=== PATIENT | female | born 1930 | race Caucasian/White ===

== ENCOUNTER 2018-06-18 16:57 | Inpatient (IN) ==
--- NOTE | 2018-06-18 17:04 | Emergency Department Note ---
ED Disposition Clinical Impression: Fracture of femoral neck base Qualifiers: Encounter type: initial encounter Fracture type: closed Fracture alignment: displaced Laterality: right Qualified Code(s): S72.041A - Displaced fracture of base of neck of right femur, initial encounter for closed fracture Disposition: Admitted As Inpatient Condition on Discharge: Good Time of Disposition: 18:43 - Critical Care Critical Care Time: No Attestation: On , the high probability of a clinically significant, sudden or life threatening deterioration of the following system(s) required my full and direct attention, intervention and personal management. The time I documented below is in addition to time spent performing reported procedures but includes the following listed in this critical care notation. Medical Decision Making - Medical Records Medical records reviewed: Yes: I reviewed the patient's medical records. - Ifeanyi Inquiry Pt receiving controlled substance: No Ifeanyi was queried for this patient: No Vital Signs: 06/18/18 16:58 06/18/18 18:32 06/18/18 19:37 Temperature 98.4 F 98.6 F Temperature Source Oral Pulse Rate 65 Pulse Rate [Left Radial] 75 79 Respiratory Rate 16 16 20 Blood Pressure 114/60 Blood Pressure [Right Arm] 148/79 H 112/60 Blood Pressure Mean [Right Arm] 102 77 Blood Pressure Source [Right Arm] Automatic Cuff Automatic Cuff Blood Pressure Position [Right Arm] Sitting Sitting 02 Sat by Pulse Oximetry 98 95 Oxygen Delivery Method Room Air Room Air Room Air - Lab Data Lab results reviewed: Yes: I reviewed the patient's lab results. Lab Results 06/18/18 17:14: WBC 9.2, RBC 3.57 L, Hgb 11.0 L, Hct 34.8 L, MCV 97.5, MCH 30.7, MCHC 31.5 L, RDW 15.3, Plt Count 225, MPV 8.5, Neut % (Auto) 77.7, Lymph % (Auto) 13.0, [place] % (Auto) 6.9, Eos % (Auto) 2.2, Baso % (Auto) 0.2, Neut # (Auto) 7.2, Lymph # (Auto) 1.2, [place] # (Auto) 0.6, Eos # (Auto) 0.2, Baso # (Auto) 0.0 06/18/18 17:14: PT 13.1 H, INR 1.28 H, APTT 29.8 06/18/18 17:14: Sodium 138, Potassium 4.3, Chloride 104, Carbon Dioxide 27, Anion Gap 11.3, BUN 17, Creatinine 1.08 H, Estimated Creat Clear 45, Estimated GFR 48 L, Est GFR ( Amer) 58 L, Glucose 97, Calcium 8.1 L, Total Bilirubin 2.0 H, AST 18, ALT 18, Alkaline Phosphatase 78, Total Protein 5.8 L, Albumin 2.5 L, Globulin 3.3 H, Albumin/Globulin Ratio 0.8 L Result diagrams: 06/19/18 06:16 06/19/18 06:16 Orders (Tests/Meds): ED MEDICATIONS Generic Name Dose Route Start Last Admin Trade Name Freq PRN Reason Stop Dose Admin Acetaminophen 500 mg 06/19/18 09:00 06/19/18 09:34 Tylenol 500mg Tablet PO 07/19/18 08:59 500 mg DAILY CHRISS Administration Hydrocodone Bitart/Acetaminophen 1 - 2 tab 06/18/18 19:26 [place] 5/325mg Tablet PO 07/18/18 19:25 Q4HP PRN Mild to Moderate Pain Atorvastatin Calcium 40 mg 06/19/18 21:00 Lipitor 40mg Tablet PO 07/19/18 20:59 HS CHRISS Bupropion HCl 150 mg 06/19/18 09:00 06/19/18 09:30 Wellbutrin Sr 150mg Tablet PO 07/19/18 08:59 150 mg BID CHRISS Administration Citalopram Hydrobromide 20 mg 06/19/18 09:00 06/19/18 09:30 Celexa 20mg Tablet PO 07/19/18 08:59 20 mg DAILY CHRISS Administration Donepezil HCl 10 mg 06/18/18 21:00 06/18/18 22:08 Aricept 10mg Tablet PO 07/18/18 20:59 Not Given HS CHRISS Sodium Chloride 1,000 mls @ 70 mls/hr 06/19/18 18:15 06/19/18 18:19 Sod Chlor 0.9% 1000ml Bag IV 07/19/18 18:14 70 mls/hr .[id number] CHRISS Administration Insulin Human Lispro 0 unit 06/19/18 11:00 06/19/18 16:43 Humalog 100 Units/Ml 3ml Vial (Ssi) SQ 07/19/18 10:59 Not Given ACHS [facility] Protocol Lamotrigine 25 mg 06/19/18 09:00 06/19/18 09:31 Lamictal 100mg Tablet PO 07/19/18 08:59 25 mg BID CHRISS Administration Metoprolol Succinate 50 mg 06/19/18 09:00 06/19/18 09:30 Toprol Xl 50mg Tablet PO 07/19/18 08:59 Not Given DAILY CHRISS Morphine Sulfate 2 mg 06/18/18 19:26 06/19/18 17:54 Morphine 4mg/Ml Syringe IV 07/18/18 19:25 2 mg Q4HP PRN Administration Severe Pain Nitrofurantoin Macrocrystals 100 mg 06/19/18 09:00 06/19/18 09:30 Macrodantin 100mg Capsule PO 07/03/18 08:59 100 mg DAILY CHRISS Administration Ondansetron HCl 4 mg 06/18/18 19:26 Zofran 4mg/2ml Vial IV 07/18/18 19:25 Q8HP PRN Nausea Pantoprazole Sodium 40 mg 06/19/18 09:00 06/19/18 09:30 Protonix 40mg Tablet PO 07/19/18 08:59 40 mg DAILY CHRISS Administration Discontinued Medications Generic Name Dose Route Start Last Admin Trade Name Freq PRN Reason Stop Dose Admin Donepezil HCl 10 mg 06/19/18 21:00 Aricept 10mg Tablet PO 07/19/18 20:59 HS [facility] Morphine Sulfate 2 mg 06/18/18 17:54 06/18/18 18:00 Morphine 2mg/Ml Syringe IV 06/18/18 17:55 2 mg ONCE ONE Administration Morphine Sulfate 2 mg 06/18/18 18:21 06/18/18 18:33 Morphine 2mg/Ml Syringe IV 06/18/18 18:22 2 mg ONCE ONE Administration Non-Formulary Medication 20 mg 06/18/18 21:00 06/18/18 22:09 Escitalopram Oxalate [Escitalopram Oxalate] PO 07/18/18 20:59 Not Given HS CHRISS Non-Formulary Medication 25 mg 06/18/18 21:00 06/18/18 22:09 Lamotrigine [Lamictal] PO 07/18/18 20:59 Not Given BID CHRISS Non-Formulary Medication 10 mg 06/19/18 09:00 Escitalopram Oxalate [Lexapro] PO 07/19/18 08:59 DAILY CHRISS Ondansetron HCl 4 mg 06/18/18 17:55 06/18/18 18:00 Zofran 4mg/2ml Vial IV 06/18/18 17:56 4 mg ONCE ONE Administration Trazodone HCl 50 mg 06/18/18 21:00 06/18/18 22:10 Desyrel 50mg Tablet PO 07/18/18 20:59 Not Given HS CHRISS ORDERS Category Date Time Status Consult to On-Call Orthopedic Surgeon [CONS] Routine Cons 06/18/18 19:26 Ordered - CT Data CT Scan: Abdomen, Pelvis Time Received: 18:[address] Reviewed: Yes: I discussed the CT results w/the radiologist Findings Narrative: low femoral neck fracture extending through greater trochanter - Physician Consults Physician Consulted: Yadiel Time: 18:42 Reason -: Orthopedic Eval/Care Fall HPI - General Chief Complaint: Fall Stated Complaint: fall Time Seen by Provider: 06/18/18 17:00 Mode of Arrival: EMS Source of Information: Relative - History of Present Illness HPI Narrative: alleged fall at [facility], last date of 06/17/2018. R hip pain, severe with any movement.. On chronic anticoagulation MD complaint: fall Onset (ago): day(s) Place fall occurred: [facility] Loss of consciousness: none Prolonged down time: no Location of injury: pelvis - Related Data Home Medications Medication Instructions Recorded Confirmed Acetaminophen [Tylenol 500mg 500 mg PO BID 06/18/18 06/19/18 tablet] Atorvastatin Calcium [Lipitor 40mg 40 mg PO HS 06/18/18 06/19/18 Tablet] Donepezil HCl [Aricept 5mg 10 mg PO HS 06/18/18 06/18/18 Tablet] Metoprolol Succinate [Toprol XL 50 mg PO DAILY 06/18/18 06/18/18 50mg Tablet] Nitrofurantoin Monohyd/M-Cryst 100 mg PO BID 06/18/18 06/19/18 [Macrobid 100 mg Capsule] RX: Trospium Chloride 20 mg PO HS 06/18/18 06/19/18 Rivaroxaban [Xarelto 15mg tablet] 15 mg PO HS 06/18/18 06/18/18 buPROPion HCl [Wellbutrin SR 150mg 150 mg PO BID 06/18/18 06/19/18 Tablet] lamoTRIgine [Lamictal] 25 mg PO BID 06/18/18 06/18/18 Escitalopram Oxalate [Lexapro] 10 mg PO DAILY 06/19/18 06/19/18 Allergies Allergy/AdvReac Type Severity Reaction Status Date / Time dobutamine Allergy Verified 06/18/18 17:04 Iodinated Contrast Media - Allergy Verified 06/18/18 17:04 Oral and iodine Allergy Verified 06/18/18 17:04 [facility] History - Hepatitis A Screen Attestation statement:: This patient has been screened for Hepatitis A risk factors. I have reviewed the patient's past medical history: Yes ROS Obtained: Yes All systems reviewed & no additional complaints - Constitutional Constitutional: Reports system reviewed and no additional complaints, except as docu, Denies fever(s), Denies lethargy, Denies weakness - Eyes Eyes: Reports system reviewed and no additional complaints, except as docu, Denies change in vision - ENT Ears, Nose, Mouth, and Throat: Reports system reviewed and no additional c omplaints, except as docu, Denies throat swelling - Cardiovascular Cardiovascular: Reports system reviewed and no additional complaints, except as docu, Denies chest pain, Denies chest pain at rest, Denies chest pain with activity, Denies dyspnea, Denies dyspnea on exertion - Respiratory Respiratory: Yes system reviewed and no additional complaints, except as docu, No chest congestion, No cough, Yes other - Gastrointestinal Gastrointestingal: Reports: system reviewed and no additional complaints, except as docu. Denies: abdominal pain, diarrhea, vomiting blood, bright red blood in stools, nausea - Genitourinary Female Genitourinary: Denies flank pain - Musculoskeletal Musculoskeletal: Reports system reviewed and no additional complaints, except as docu, Reports joint pain, Reports decreased muscle mass, Reports limited range of motion, Reports muscle aches, Denies neck pain, Denies numbness - Integumentary/Breasts Skin/Breast: Reports system reviewed and no additional complaints, except as docu, Denies skin swelling, Denies unusual bruising - Neurologic Neurologic: Reports system reviewed and no additional complaints, except as docu, Denies tingling/numbness/burning sensations, Denies seizure-like activity, Denies tremor(s) - Hematologic/Lymphatic Henatologic/Lymphatic: Denies easy bleeding, Denies easy bruising, Denies lymphadenopathy - Allergic/Immunologic Allergic/Immunologic: Reports system reviewed and no additional complaints, except as docu Physical Exam - General General appearance: alert, in distress - Head Head exam: atraumatic, normocephalic, normal inspection - Eye Eye exam: Present: normal appearance, PERRL, EOMI - ENT ENT exam: Present: normal exam, normal oropharynx, mucous membranes moist, TM's normal bilaterally, normal external ear exam - Neck Neck exam: Present: normal inspection, full ROM, trachea midline. Absent: meningismus, lymphadenopathy - Chest Chest inspection: Present: normal inspection, symmetric chest wall rise. Absent: tenderness - Respiratory Respiratory exam: Present: normal lung sounds bilaterally. Absent: respiratory distress - Cardiovascular Cardiovascular exam: Present: regular rate, normal rhythm. Absent: JVD - Abdominal Exam Abdominal exam: Present: soft. Absent: distention, tenderness, guarding, rebound, rigidity, mass, pulsatile mass - Extremities Exam Extremities exam: Present: tenderness, normal capillary refill, other (leg length discrepency noted, R shortened). Absent: normal inspection, full ROM, pedal edema, joint swelling, calf tenderness (tender R hip area. No hematoma seen) - Neurological Exam Neurological exam: Present: alert, oriented X3, CN II-XII intact - Psychiatric Psychiatric exam: Present: normal affect, normal mood - Skin Skin exam: Present: warm, dry, intact, normal color
[2018-06-18 17:22] LABS: Basophils % 0.2 % (0.1-2.0); Eosinophils # 0.2 K/mm3 (0.0-0.4); Eosinophils % 2.2 % (0.1-12.0); Hematocrit 34.8 % (37.0-47.0); Lymphocytes # 1.2 K/mm3 (0.7-4.5); Mean Corpuscular HGB Conc 31.5 g/dL (31.8-35.4); Mean Corpuscular Hemoglobin 30.7 pg (27.0-31.2); Mean Corpuscular Volume 97.5 fl (81-99); Mean Platelet Volume 8.5 fl (7.4-10.4); Monocytes # 0.6 K/mm3 (0.1-1.0); Monocytes % 6.9 % (1.7-9.3); Neutrophils # 7.2 K/mm3 (1.8-7.8); Neutrophils % 77.7 % (37.0-80.0); Platelet Count 225 K/mm3 (142-424); Red Blood Count 3.57 M/mm3 (4.20-5.40); Red Cell Distribution Width 15.3 % (11.5-17.5); White Blood Count 9.2 K/mm3 (4.8-10.8)
[2018-06-18 17:31] LABS: Activated Partial Thrombo Time 29.8 seconds (23.6-34.0); INR 1.28 (0.9-1.1); Prothrombin Time 13.1 seconds (9.4-11.8)
[2018-06-18 17:37] LABS: Albumin Level 2.5 gm/dL (3.4-5.0); Albumin/Globulin Ratio 0.8 (1.1-1.8); Anion Gap 11.3 mEq/L (5-15); Calcium 8.1 mg/dL (8.5-10.1); Globulin 3.3 gm/dl (1.3-3.2); Potassium 4.3 mmoL/L (3.5-5.1); Total Protein,Serum 5.8 gm/dL (6.4-8.2)
--- NOTE | 2018-06-19 06:34 | History & Physical Report ---
*Admission Date: 06/18/18 *Chief complaint: fall, fractured hip *History of present illness: Ms. Nava is an 87 yo F who resides at a [facility]. [facility] the [facility] on [facility]. She subsequently has been c/o severe right hip pain with any movement. Imaging shows a femoral neck fracture through the greater trochanter. Her condition is complicated by her chronic anticoagulation use. Unable to obtain much history due to patient's dementia and no patient advocate or family at bedside. At this time she reports that she has some leg pain but she does not think her leg is broken as she was walking. She also thinks she is in [place], and asks if her mom is with her. Unable to obtain review of systems [facility] History I have reviewed the patient's past medical history: Yes Medical History: Reports:: Atrial Fibrillation, Diabetes Mellitus Type 2 (NOT AN ISSUE AT THIS PRESENT TIME) Have you ever received a pneumonia vaccine?: Yes Have you received a flu vaccine this season?: No Other Surgeries: Yes: Cholecystectomy, Other (GASTRIC REMOVAL) - *Social History Educational Level: Attended College Smoking Status: Never smoker Alcohol Intake: never Occupational Status: retired Housing: [facility] Travel in the last 8 weeks: None - Psychiatric History Expresses thoughts of harming self/others: None Suicide Plan Description: No Plan *Family Hx:: Coronary Artery Disease, Diabetes, Heart Attack, Hyperlipidemia, Hypertension Review of Systems - Review of Systems Review of systems:: unable to obtain - *Neurologic Denies numbness, Denies tingling/numbness/burning sensations, Denies seizure-li ke activity, Denies tremor(s), Denies weakness Meds Home Medications Medication Instructions Recorded Confirmed Type Acetaminophen [Tylenol 500mg 500 mg PO BID 06/18/18 06/19/18 History tablet] Atorvastatin Calcium [Lipitor 40mg 40 mg PO HS 06/18/18 06/19/18 History Tablet] Donepezil HCl [Aricept 5mg 10 mg PO HS 06/18/18 06/18/18 History Tablet] Metoprolol Succinate [Toprol XL 50 mg PO DAILY 06/18/18 06/18/18 History 50mg Tablet] Nitrofurantoin Monohyd/M-Cryst 100 mg PO BID 06/18/18 06/19/18 History [Macrobid 100 mg Capsule] Rivaroxaban [Xarelto 15mg tablet] 15 mg PO HS 06/18/18 06/18/18 History Trospium Chloride 20 mg PO HS 06/18/18 06/19/18 History buPROPion HCl [Wellbutrin SR 150mg 150 mg PO BID 06/18/18 06/19/18 History Tablet] lamoTRIgine [Lamictal] 25 mg PO BID 06/18/18 06/18/18 History Escitalopram Oxalate [Lexapro] 10 mg PO DAILY 06/19/18 06/19/18 History Allergies Allergy/AdvReac Type Severity Reaction Status Date / Time dobutamine Allergy Verified 06/18/18 17:04 Iodinated Contrast Media - Allergy Verified 06/18/18 17:04 Oral and iodine Allergy Verified 06/18/18 17:04 Exam Vital signs and Labs for Last 24 Hours: Temp Pulse Resp BP Pulse Ox 97.8 F 94 H 20 105/64 L 93 L 06/19/18 04:00 06/19/18 04:00 06/19/18 04:00 06/19/18 04:00 06/19/18 04:00 Laboratory Results - last 24 hr 06/18/18 17:14: WBC 9.2, RBC 3.57 L, Hgb 11.0 L, Hct 34.8 L, MCV 97.5, MCH 30.7, MCHC 31.5 L, RDW 15.3, Plt Count 225, MPV 8.5, Neut % (Auto) 77.7, Lymph % (Auto) 13.0, [place] % (Auto) 6.9, Eos % (Auto) 2.2, Baso % (Auto) 0.2, Neut # (Auto) 7.2, Lymph # (Auto) 1.2, [place] # (Auto) 0.6, Eos # (Auto) 0.2, Baso # (Auto) 0.0 06/18/18 17:14: PT 13.1 H, INR 1.28 H, APTT 29.8 06/18/18 17:14: Sodium 138, Potassium 4.3, Chloride 104, Carbon Dioxide 27, Anion Gap 11.3, BUN 17, Creatinine 1.08 H, Estimated Creat Clear 45, Estimated GFR 48 L, Est GFR ( Amer) 58 L, Glucose 97, Calcium 8.1 L, Total Bilirubin 2.0 H, AST 18, ALT 18, Alkaline Phosphatase 78, Total Protein 5.8 L, Albumin 2.5 L, Globulin 3.3 H, Albumin/Globulin Ratio 0.8 L I & O for Last 24 hours: Intake & Output 06/16/18 06/17/18 06/18/18 06/19/18 23:59 23:59 23:59 23:59 Weight 65.572 kg - Constitutional no acute distress, chronically ill appearing Comments: Pleasantly confused - *Routine HEENT Exam Head: Present: normocephalic, atraumatic Eye: Present: EOMI, PERRL ENT: Present: mucous membranes moist Comments: Poor dentition - *Routine Neck Exam Present: supple, full ROM. Absent: JVD - Routine Chest/Breast/Axilla Exam Comments: Prominent ribs across chest - *Routine Respiratory Exam Present: CTA bilaterally. Absent: wheezes, crackles - *Routine Cardiovascular Exam Present: RRR - *Routine Abdominal Exam Present: soft, normoactive bowel sounds - *Routine Rectal Exam Patient deferred: visual exam - *Routine Exam Patient deferred: external exam Comments: Incontinent, in diaper - *Routine Extremities Exam Present: edema. Absent: cyanosis, clubbing Comments: Tender to palpation in right upper thigh - *Routine Skin Exam Present: intact. Absent: cyanosis, erythema - *Routine Neurological Exam Present: alert, altered mental status Alert to person, disoriented to place, time, situation. Assessment and Plan (1) Fracture of femoral neck base Current visit: Yes Status: Acute Qualifiers: Qualified Code(s): S72.041A - Displaced fracture of base of neck of right femur, initial encounter for closed fracture Category: Medical Code(s): S72.043A - Displaced fracture of base of neck of unspecified femur, initial encounter for closed fracture RCRI: Patient has atrial fibrillation rate controlled with metoprolol, chronic anticoagulation. Normal kidney function. [id number] diabetes. History of coronary artery disease, CVD unknown. Does have significant dementia. Patient would be an elevated risk patient for an intermediate risk procedure. Will obtain EKG and echo to assist with risk stratification for anesthesia. Surgery would be emergent given increased mortality in the non-op setting for femoral neck fracture of a patient of this age. Continue beta-haylee in the perioperative setting Hold anticoagulation Sliding scale insulin for hyperglycemia as needed EKG/echo pending Cardiology consulted METs: Unquantifiable, though reportedly ambulatory at baseline. (2) Dementia Current visit: Yes Status: Acute Category: Medical Code(s): F03.90 - Unspecified dementia without behavioral disturbance At baseline, unknown etiology. Continue medications from home. (3) Atrial fibrillation Current visit: Yes Status: Acute Category: Medical Code(s): I48.91 - Uns pecified atrial fibrillation Continue beta-haylee and perioperative period. Holding Xarelto. -EKG pending (4) Diabetes type 2, controlled Current visit: Yes Status: Acute Qualifiers: Qualified Code(s): E11.9 - Type 2 diabetes mellitus without complications Category: Medical Code(s): E11.9 - Type 2 diabetes mellitus without complications Sliding scale insulin, fingersticks before meals and at bedtime
[2018-06-19 06:54] LABS: Basophils # 0.1 K/mm3 (0-0.2); Basophils % 0.6 % (0.1-2.0); Eosinophils # 0.3 K/mm3 (0.0-0.4); Eosinophils % 4.2 % (0.1-12.0); Hematocrit 33.2 % (37.0-47.0); Hemoglobin 10.4 g/dL (12.2-16.2); Lymphocytes # 1.5 K/mm3 (0.7-4.5); Lymphocytes % 19.5 % (10-50); Mean Corpuscular HGB Conc 31.3 g/dL (31.8-35.4); Mean Corpuscular Volume 99.1 fl (81-99); Mean Platelet Volume 9.1 fl (7.4-10.4); Monocytes # 0.5 K/mm3 (0.1-1.0); Monocytes % 6.9 % (1.7-9.3); Neutrophils # 5.2 K/mm3 (1.8-7.8); Neutrophils % 68.9 % (37.0-80.0); Platelet Count 184 K/mm3 (142-424); Red Blood Count 3.35 M/mm3 (4.20-5.40); Red Cell Distribution Width 15.4 % (11.5-17.5); White Blood Count 7.5 K/mm3 (4.8-10.8)
[2018-06-19 07:00] LABS: Calcium 7.9 mg/dL (8.5-10.1)
--- NOTE | 2018-06-19 07:28 | Pharmacy Consult Notes ---
[facility] Pharmacy VTE Monitoring - Patient Demographics Admission date: 06/18/18 Report Date: 06/19/18 Time: 07:28 Allergies/Adverse Reactions: Patient Allergies dobutamine Allergy (Verified 06/18/18 17:04) Iodinated Contrast Media - Oral and Allergy (Verified 06/18/18 17:04) iodine Allergy (Verified 06/18/18 17:04) Height: 1.57 m Weight: 65.572 kg Patient Problems: Current Active Problems Fracture of femoral neck base (Acute) - VTE Risk Labs: VTE Related Lab Results Hgb 10.4 g/dL (12.2-16.2) L 06/19/18 06:16 Hct 33.2 % (37.0-47.0) L 06/19/18 06:16 Plt Count 184 K/mm3 (142-424) 06/19/18 06:16 PT 13.1 seconds (9.4-11.8) H 06/18/18 17:14 INR 1.28 (0.9-1.1) H 06/18/18 17:14 APTT 29.8 seconds (23.6-34.0) 06/18/18 17:14 BUN 17 mg/dL (7-18) 06/19/18 06:16 Creatinine 1.05 mg/dL (0.55-1.02) H 06/19/18 06:16 Estimated Creat Clear 41 mL/min (50-200) 06/19/18 06:16 Was VTE Risk Assessment Performed: Yes VTE Score: 6 VTE Risk Level: Moderate Risk - Prophylaxis VTE Prophylaxis Ordered?: Yes Types of VTE Prophylaxis: TEDS Knee High Location of Applied Device: Bilateral Lower Extremeties - VTE Diagnosis Confirmed Treatment or plan recommended: Continue Current Treatment
--- NOTE | 2018-06-19 08:44 | Consult Report ---
History of Present Illness Consult date: 06/19/18 Requesting physician: Damian Rascon Consult reason: pre-op evaluation Chief complaint: Right hip Fx, A. fib, DM, Dementia Additional Medical History:: 1. [facility] resident 2. Dementia 3. History of A. fib A. jail anticoagulation 4. Right hip Fx, 06/18/2017 5. Hyperlipidemia 6. DM, type 2, with normal renal function History of present illness: 87 yo WF from [facility] with reported fall with subsequent right hip fracture. Dementia precludes meaningful history from patient. No family present. Cardiology consulted for pre-op evaluation with PMH of a.fib on chronic anticoagulation with rate controlled on metoprolol and history of DM. [facility] History Medical History: Reports:: Atrial Fibrillation, Diabetes Mellitus Type 2 (NOT AN ISSUE AT THIS PRESENT TIME) Have you ever received a pneumonia vaccine?: Yes Have you received a flu vaccine this season?: No Other Surgeries: Yes: Cholecystectomy, Other (GASTRIC REMOVAL) - *Social History Educational Level: Attended College Smoking Status: Never smoker Alcohol Intake: never Occupational Status: retired Housing: [facility] Travel in the last 8 weeks: None - Psychiatric History Expresses thoughts of harming self/others: None Suicide Plan Description: No Plan *Family Hx:: Coronary Artery Disease, Diabetes, Heart Attack, Hyperlipidemia, Hypertension Meds Home Medications Medication Instructions Recorded Confirmed Type Acetaminophen [Tylenol 500mg 500 mg PO BID 06/18/18 06/19/18 History tablet] Atorvastatin Calcium [Lipitor 40mg 40 mg PO HS 06/18/18 06/19/18 History Tablet] Donepezil HCl [Aricept 5mg 10 mg PO HS 06/18/18 06/18/18 History Tablet] Metoprolol Succinate [Toprol XL 50 mg PO DAILY 06/18/18 06/18/18 History 50mg Tablet] Nitrofurantoin Monohyd/M-Cryst 100 mg PO BID 06/18/18 06/19/18 History [Macrobid 100 mg Capsule] Rivaroxaban [Xarelto 15mg tablet] 15 mg PO HS 06/18/18 06/18/18 History Trospium Chloride 20 mg PO HS 06/18/18 06/19/18 History buPROPion HCl [Wellbutrin SR 150mg 150 mg PO BID 06/18/18 06/19/18 History Tablet] lamoTRIgine [Lamictal] 25 mg PO BID 06/18/18 06/18/18 History Escitalopram Oxalate [Lexapro] 10 mg PO DAILY 06/19/18 06/19/18 History Allergies Allergy/AdvReac Type Severity Reaction Status Date / Time dobutamine Allergy Verified 06/18/18 17:04 Iodinated Contrast Media - Allergy Verified 06/18/18 17:04 Oral and iodine Allergy Verified 06/18/18 17:04 Review of Systems - *Cardiovascular Denies chest pain, Denies shortness of breath - *Respiratory Denies cough, Denies shortness of breath - *Gastrointestinal Denies abdominal pain - *Musculoskeletal Reports joint pain - *Neurologic Denies numbness, Denies tingling/numbness/burning sensations, Denies seizure- like activity, Denies tremor(s), Denies weakness Exam Vital signs and Labs for Last 24 Hours: Temp Pulse Resp BP Pulse Ox 98.9 F 92 H 18 96/62 L 91 L 06/19/18 08:00 06/19/18 08:00 06/19/18 08:00 06/19/18 08:00 06/19/18 08:00 Laboratory Results - last 24 hr 06/18/18 17:14: WBC 9.2, RBC 3.57 L, Hgb 11.0 L, Hct 34.8 L, MCV 97.5, MCH 30.7, MCHC 31.5 L, RDW 15.3, Plt Count 225, MPV 8.5, Neut % (Auto) 77.7, Lymph % ( Auto) 13.0, [place] % (Auto) 6.9, Eos % (Auto) 2.2, Baso % (Auto) 0.2, Neut # (Auto) 7.2, Lymph # (Auto) 1.2, [place] # (Auto) 0.6, Eos # (Auto) 0.2, Baso # (Auto) 0.0 06/18/18 17:14: PT 13.1 H, INR 1.28 H, APTT 29.8 06/18/18 17:14: Sodium 138, Potassium 4.3, Chloride 104, Carbon Dioxide 27, Anion Gap 11.3, BUN 17, Creatinine 1.08 H, Estimated Creat Clear 45, Estimated GFR 48 L, Est GFR ( Amer) 58 L, Glucose 97, Calcium 8.1 L, Total Bilirubin 2.0 H, AST 18, ALT 18, Alkaline Phosphatase 78, Total Protein 5.8 L, Albumin 2.5 L, Globulin 3.3 H, Albumin/Globulin Ratio 0.8 L 06/19/18 06:16: WBC 7.5, RBC 3.35 L, Hgb 10.4 L, Hct 33.2 L, MCV 99.1 H, MCH 31.0, MCHC 31.3 L, RDW 15.4, Plt Count 184, MPV 9.1, Neut % (Auto) 68.9, Lymph % (Auto) 19.5, [place] % (Auto) 6.9, Eos % (Auto) 4.2, Baso % (Auto) 0.6, Neut # (Auto) 5.2, Lymph # (Auto) 1.5, [place] # (Auto) 0.5, Eos # (Auto) 0.3, Baso # (Auto) 0.1 06/19/18 06:16: Sodium 141, Potassium 4.0, Chloride 106, Carbon Dioxide 26, Anion Gap 13.0, BUN 17, Creatinine 1.05 H, Estimated Creat Clear 41, Estimated GFR 50 L, Est GFR ( Amer) 60, Glucose 76 D, Calcium 7.9 L I & O for Last 24 hours: Intake & Output 06/16/18 06/17/18 06/18/18 06/19/18 11:59 11:59 11:59 11:59 Intake Total 0 / 0 Balance 0 / 0 Weight 144 lb 9 oz - *Routine Neck Exam Present: supple. Absent: JVD, carotid bruit - *Routine Respiratory Exam Present: CTA bilaterally. Absent: accessory muscle use, rales, rhonchi, wheezes - *Routine Cardiovascular Exam Present: RRR. Absent: murmur, gallop, rubs - *Routine Abdominal Exam Present: soft. Absent: tenderness, distended, guarding - *Routine Extremities Exam Absent: edema, calf tenderness - *Routine Neurological Exam Present: CN II-XII intact Thinks she is in [place] Does not answer question of year Drifts off when asked other questions. Assessment and Plan (1) Fracture of femoral neck base Current visit: Yes Status: Acute Qualifiers: Encounter type: initial encounter Fracture type: closed Fracture alignment: displaced Laterality: right Qualified Code(s): S72.041A - Displaced fracture of base of neck of right femur, initial encounter for closed fracture Category: Medical Code(s): S72.043A - Displaced fracture of base of neck of unspecified femur, initial encounter for closed fracture (2) Dementia Current visit: Yes Status: Acute Category: Medical Code(s): F03.90 - Unspecified dementia without behavioral disturbance (3) Atrial fibrillation Current visit: Yes Status: Acute Category: Medical Code(s): I48.91 - Unspecified atrial fibrillation (4) Diabetes type 2, controlled Current visit: Yes Status: Acute 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 EKG shows NSR with borderline first degree AV block. 2. Xarelto has been held. 3. Pt is comfortable lieing flat without dyspnea or JVD appreciable on exam. 4. Echo shows normal LV function with mild to moderate mitral regurgitation. Left atrial enlargement noted. 5. Pt is increased but acceptable risk for right hip surgery and general anesthesia from a cardiology standpoint. Recommend waiting until Tuesday to operate due to last dose of Xarelto on 06/18/2018. Continue home dose of metoprolol valery-operatively. Continue telemetry to monitor for atrial fibrillation. 6. Discussed with Dr. Craig
--- NOTE | 2018-06-19 15:20 | Consult Report ---
*Admission Date: 06/18/18 *Chief complaint: Fracture neck of femur, right *History of present illness: Ms. Nava is an 87 yo female who is a resident of a long-term. Patient has severe dementia which precludes any meaningful conversation with the patient. No family members are present with her at this time. As per the admission documentation, she reportedly fell at the long-term on 06/17. She subsequently has been c/o severe right hip pain with any movement. She was brought to the ER where imaging showed a femoral neck fracture through the greater trochanter. She is on long-term anti-correlation with Xarelto for atrial fibrillation. Her last dose was yesterday. Unable to obtain much history due to patient's dementia and no patient advocate or family at bedside. We have contacted the long-term and the sick patient has been with them for only about a week or so. She apparently has very poor mobility and transfers with help; she also mobilizes a short distances with a walker and 1 person assistance. 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 Orthopedic surgery consulted for management of the right hip fracture Review of Systems - Review of Systems Review of systems:: unable to obtain [facility] History I have reviewed the patient's past medical history: Yes Medical History: Reports:: Atrial Fibrillation, Diabetes Mellitus Type 2 (NOT AN ISSUE AT THIS PRESENT TIME) Have you ever received a pneumonia vaccine?: Yes Have you received a flu vaccine this season?: No Other Surgeries: Yes: Cholecystectomy, Other (GASTRIC REMOVAL) - *Social History Educational Level: Attended College Smoking Status: Never smoker Alcohol Intake: never Occupational Status: retired Housing: long-term Travel in the last 8 weeks: None - Psychiatric History Expresses thoughts of harming self/others: None Suicide Plan Description: No Plan *Family Hx:: Coronary Artery Disease, Diabetes, Heart Attack, Hyperlipidemia, Hypertension Meds Home Medications Medication Instructions Recorded Confirmed Type Acetaminophen [Tylenol 500mg 500 mg PO BID 06/18/18 06/19/18 History tablet] Atorvastatin Calcium [Lipitor 40mg 40 mg PO HS 06/18/18 06/19/18 History Tablet] Donepezil HCl [Aricept 5mg 10 mg PO HS 06/18/18 06/18/18 History Tablet] Metoprolol Succinate [Toprol XL 50 mg PO DAILY 06/18/18 06/18/18 History 50mg Tablet] Nitrofurantoin Monohyd/M-Cryst 100 mg PO BID 06/18/18 06/19/18 History [Macrobid 100 mg Capsule] Rivaroxaban [Xarelto 15mg tablet] 15 mg PO HS 06/18/18 06/18/18 History Trospium Chloride 20 mg PO HS 06/18/18 06/19/18 History buPROPion HCl [Wellbutrin SR 150mg 150 mg PO BID 06/18/18 06/19/18 History Tablet] lamoTRIgine [Lamictal] 25 mg PO BID 06/18/18 06/18/18 History Escitalopram Oxalate [Lexapro] 10 mg PO DAILY 06/19/18 06/19/18 History Allergies Allergy/AdvReac Type Severity Reaction Status Date / Time dobutamine Allergy Verified 06/18/18 17:04 Iodinated Contrast Media - Allergy Verified 06/18/18 17:04 Oral and iodine Allergy Verified 06/18/18 17:04 Exam Vital signs and Labs for Last 24 Hours: Temp Pulse Resp BP Pulse Ox 98.9 F 92 H 18 96/62 L 91 L 06/19/18 08:00 06/19/18 08:00 06/19/18 08:00 06/19/18 08:00 06/19/18 08:00 Laboratory Results - last 24 hr 06/18/18 17:14: WBC 9.2, RBC 3.57 L, Hgb 11.0 L, Hct 34.8 L, MCV 97.5, MCH 30.7, MCHC 31.5 L, RDW 15.3, Plt Count 225, MPV 8.5, Neut % (Auto) 77.7, Lymph % (Auto) 13.0, [place] % (Auto) 6.9, Eos % (Auto) 2.2, Baso % (Auto) 0.2, Neut # (Auto) 7.2, Lymph # (Auto) 1.2, [place] # (Auto) 0.6, Eos # (Auto) 0.2, Baso # (Auto) 0.0 06/18/18 17:14: PT 13.1 H, INR 1.28 H, APTT 29.8 06/18/18 17:14: Sodium 138, Potassium 4.3, Chloride 104, Carbon Dioxide 27, Anion Gap 11.3, BUN 17, Creatinine 1.08 H, Estimated Creat Clear 45, Estimated GFR 48 L, Est GFR ( Amer) 58 L, Glucose 97, Calcium 8.1 L, Total Bilirubin 2.0 H, AST 18, ALT 18, Alkaline Phosphatase 78, Total Protein 5.8 L, Albumin 2.5 L, Globulin 3.3 H, Albumin/Globulin Ratio 0.8 L 06/19/18 06:16: WBC 7.5, RBC 3.35 L, Hgb 10.4 L, Hct 33.2 L, MCV 99.1 H, MCH 31.0, MCHC 31.3 L, RDW 15.4, Plt Count 184, MPV 9.1, Neut % (Auto) 68.9, Lymph % (Auto) 19.5, [place] % (Auto) 6.9, Eos % (Auto) 4.2, Baso % (Auto) 0.6, Neut # (Auto) 5.2, Lymph # (Auto) 1.5, [place] # (Auto) 0.5, Eos # (Auto) 0.3, Baso # (Auto) 0.1 06/19/18 06:16: Sodium 141, Potassium 4.0, Chloride 106, Carbon Dioxide 26, Anion Gap 13.0, BUN 17, Creatinine 1.05 H, Estimated Creat Clear 41, Estimated GFR 50 L, Est GFR ( Amer) 60, Glucose 76 D, Calcium 7.9 L 06/19/18 11:32: POC Glucose 74 I & O for Last 24 hours: Intake & Output 06/17/18 06/18/18 06/19/18 06/20/18 11:59 11:59 11:59 11:59 Intake Total 0 / 0 Balance 0 / 0 Weight 144 lb 9 oz 144 lb 8.984 oz - Constitutional no acute distress, average body habitus - *Routine HEENT Exam Head: Present: normocephalic, atraumatic ENT: Present: mucous membranes dry - *Routine Neck Exam Present: supple, trachea midline. Absent: lymphadenopathy - *Routine Respiratory Exam Present: CTA bilaterally. Absent: respiratory distress - *Routine Cardiovascular Exam Present: RRR, Normal S1, Normal S2 - *Routine Abdominal Exam Present: soft, normoactive bowel sounds. Absent: organomegaly - *Routine Extremities Exam Comments: On examination of her lower extremities, there is shortening of the RIGHT leg and the foot is externally rotated. On examination of the RIGHT hip the skin is normal. No rashes or lesions noted. She is tender over the RIGHT hip. Any attempted movements of the RIGHT hip are painful. Thigh and calf are soft and nontender. Dorsalis pedis and posterior tibial pulses are palpable 1+ bilaterally. Sensation is grossly intact. She is actively wiggling the foot and ankle. Diagnostic imaging: X-rays of her right hip and right femur multiple views and noncontrast CT scan images of the right hip (from the abdomen/pelvis CT) are reviewed along with the radiologist's report. I have personally discussed the x-ray and CT scan findings with the radiologist, Dr. Powell. The x-rays show a complex, displaced, comminuted peritrochanteric fracture with basicervical extension. The lesser trochanter appears intact even though there is suspicion of a fracture line on the anterior cuts of the CT scan. No femoral head fracture or dislocation noted. The femoral head and acetabulum are well preserved without significant degenerative changes. There is a moderate/severe degree of osteopenia; vascular calcification noted over the hip. Full length femur x-ray shows no distal fractures, deformities or lesions. The right knee joint is arthritic. I have also reviewed her images with my colleague, Dr. Dahl. - *Routine Skin Exam Present: intact, dry, warm - *Routine Neurological Exam Present: alert - Routine Psychiatric Exam Present: cooperative Results - Labs Result Diagrams: 06/19/18 06:16 06/21/18 07:25 Labs: Abnormal lab results 06/18/18 06/18/18 06/18/18 Range/Units 17:14 17:14 17:14 RBC 3.57 L (4.20-5.40) M/mm3 Hgb 11.0 L (12.2-16.2) g/dL Hct 34.8 L (37.0-47.0) % MCV (81-99) fl MCHC 31.5 L (31.8-35.4) g/dL PT 13.1 H (9.4-11.8) seconds INR 1.28 H (0.9-1.1) Creatinine 1.08 H (0.55-1.02) mg/dL Estimated GFR 48 L (>60) ml/min Est GFR ( Amer) 58 L (>60) ML/MIN Calcium 8.1 L (8.5-10.1) mg/dL Total Bilirubin 2.0 H (0.2-1.0) mg/dL Total Protein 5.8 L (6.4-8.2) gm/dL Albumin 2.5 L (3.4-5.0) gm/dL Globulin 3.3 H (1.3-3.2) gm/dl Albumin/Globulin Ratio 0.8 L (1.1-1.8) 06/19/18 06/19/18 Range/Units 06:16 06:16 RBC 3.35 L (4.20-5.40) M/mm3 Hgb 10.4 L (12.2-16.2) g/dL Hct 33.2 L (37.0-47.0) % MCV 99.1 H (81-99) fl MCHC 31.3 L (31.8-35.4) g/dL PT (9.4-11.8) seconds INR (0.9-1.1) Creatinine 1.05 H (0.55-1.02) mg/dL Estimated GFR 50 L (>60) ml/min Est GFR ( Amer) (>60) ML/MIN Calcium 7.9 L (8.5-10.1) mg/dL Total Bilirubin (0.2-1.0) mg/dL Total Protein (6.4-8.2) gm/dL Albumin (3.4-5.0) gm/dL Globulin (1.3-3.2) gm/dl Albumin/Globulin Ratio (1.1-1.8) H & H 06/18/18 06/19/18 Range/Units 17:14 06:16 Hgb 11.0 L 10.4 L (12.2-16.2) g/dL Hct 34.8 L 33.2 L (37.0-47.0) % Coagulation 06/18/18 Range/Units 17:14 INR 1.28 H (0.9-1.1) All other labs normal. Assessment and Plan (1) Fracture of femoral neck base Current visit: Yes Status: Acute Qualifiers: Encounter type: initial encounter Fracture type: closed Fracture alignmen t: displaced Laterality: right Qualified Code(s): S72.041A - Displaced fracture of base of neck of right femur, initial encounter for closed fracture Category: Medical Code(s): S72.043A - Displaced fracture of base of neck of unspecified femur, initial encounter for closed fracture (2) Dementia Current visit: Yes Status: Acute Category: Medical Code(s): F03.90 - Unspecified dementia without behavioral disturbance (3) Atrial fibrillation Current visit: Yes Status: Acute Category: Medical Code(s): I48.91 - Unspecified atrial fibrillation (4) Diabetes type 2, controlled Current visit: Yes Status: Acute Qualifiers: 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 Patient has severe dementia and cannot make any meaningful conversation with her. No family members or patient advocate are available to discuss the management options. I understand, patient's daughter lives nearby and is going to come to the hospital at some point either today or tomorrow. I would like to discuss with her regarding the management options for her mother. If patient is able to withstand surgery from a medical/cardiac standpoint, a surgical remediation in the form of a femoral nailing (cephalo-medullary nailing)/hemiarthroplasty would be the best management option for hip fracture. The nonoperative management would essentially consist of prolonged bed rest and traction (skeletal/skin) in bed and pain medication and has exceptionally poor outcome. This could result in nonunion and malunion of the fracture and almost certainly, the patient has a very high risk of decubitus ulcers, UTI, respiratory tract infections, DVT/PE and other complications from being bedridden. We contacted the long-term regarding patient's preinjury mobility-from the information we could obtain, patient has very limited mobility transferring with assistance ambulating short distances with a walker and 1 person assist. Patient was already seen by Dr. Rascon and cleared for surgery from a medical standpoint. She was also seen by cardiology and was cleared for surgery from a cardiac standpoint with appropriate risk stratification. Dr. Craig has recommended delaying surgery for a couple of days as patient is on Xarelto. I have discussed this with Dr. Rascon over the telephone regarding this and he agrees. We will also obtain a preoperative anesthetic evaluation. The limb was marked appropriately and initialed by me. I have recommended- Type and screen Patient can eat and drink today as surgery is not planned until Tuesday Pérez's traction right lower extremity, apply 5 pounds weight Continue IV fluids Analgesia as needed Consent patient for a cephalo-medullary nailing RIGHT femur/hemiarthroplasty RIGHT hip. Order 2 g of IV Ancef for preoperative prophylaxis to start half an hour before surgery I am planning to take her for surgery in 2 days time is recommended by Dr. Craig. Continue medical management as per Dr. Rascon. I would also like to discuss about her management with patient's daughter prior to surgery. Thank you for the opportunity to take part in the care of this very pleasant patient.
--- NOTE | 2018-06-19 21:28 | Cardiology Report ---
PROCEDURE: 2-D M-mode and color Doppler study INDICATIONS FOR THE TEST: Chest pain COPD Heart Murmur Tobacco Smoking Palpitations Fatigue Syncope Edema Hypertension Diabetes Mellitus Rheumatic Fever SOB WANG Obesity Hyperlipidemia Family History HD Additional History FX HIP,EVAL LV FXN PATIENT INFORMATION HEIGHT: 62 WEIGHT:144 GENDER: Female B/P:110/70 2-D/M-MODE INTERPRETATION: 2-D MEASUREMENTS OBSERVED VALUES IN CMS Right Ventricular Dimension (RVDd) 2.1 Interventricular Septum (Thickness)(IVsd) 1.1 Left Ventricular Internal Dimensions(LVIDd) 5.6 Left Ventricular Posterior Wall (Thickness)(LVPWd) 1.0 Aortic Root 3.1 Aortic Cusp Separation 1.9 Left Atrial Dimensions (LAD) 4.8 2D 1. Left atrium is moderately enlarged, left ventricle is normal size, mild concentric left ventricular hypertrophy, visually estimated ejection fraction 55% with no regional wall motion abnormality. There is abnormal septal motion 2. The right atrium and right ventricle are mildly enlarged with normal contractility. 3. The aortic valve is thickened and calcified leaflet continue to display mobility. 4. The mitral valve has mitral annular calcification, mitral valve leaflets are minimally thickened. 5. The tricuspid valve is grossly normal. 6. The pulmonic valve is poorly visualized. 7. No significant pericardial effusion noted. DOPPLER INTERROGATION: Doppler interrogation of the aortic, mitral and tricuspid valvular presence of moderate mitral and mild tricuspid regurgitation, likely related right ventricular systolic pressure is 49 mmHg consistent with mild pulmonary hypertension, diastolic parameters are inconclusive. CONCLUSION: 1. Biatrial enlargement, normal left ventricular size, mild concentric left ventricular hypertrophy, visually estimated ejection fraction 55% with no regional wall motion abnormality, there is abnormal septal motion. Diastolic parameters are inconclusive. 2. Mildly enlarged right ventricle with normal contractility. 3. Thickened and calcified aortic valve without aortic stenosis aortic insufficiency. 4. Moderate mitral and mild tricuspid regurgitation, calculated right ventricular systolic pressure is 49 mmHg consistent with moderate pulmonary hypertension. 5. No significant pericardial effusion noted.
--- NOTE | 2018-06-20 08:23 | Progress Note ---
Internal Medicine - PN: Subj *Date: 06/20/18 *Time: 08:19 Interval history: Ms. Nava remains pleasantly confused. She has no complaints morning. Remains afebrile. Leg), tolerating well. Minimal pain as long as she stays immobile. No nausea, shortness of breath, chest pain. Exam Vital signs and Labs for Last 24 Hours: Temp Pulse Resp BP Pulse Ox 97.9 F 98 H 20 119/57 L 95 06/20/18 04:09 06/20/18 04:09 06/20/18 04:09 06/20/18 04:09 06/20/18 04:09 Laboratory Results - last 24 hr 06/19/18 11:32: POC Glucose 74 06/19/18 12:34: Blood Type A Positive, Antibody Screen Negative 06/19/18 16:40: POC Glucose 72 06/19/18 20:02: POC Glucose 74 06/20/18 05:46: POC Glucose 71 I & O for Last 24 hours: Intake & Output 06/17/18 06/18/18 06/19/18 06/20/18 23:59 23:59 23:59 23:59 Intake Total 240 / 240 1013 / 1013 Balance 240 / 240 1013 / 1013 Weight 65.572 kg 65.572 kg Narrative: - Constitutional no acute distress, chronically ill appearing Comments: Pleasantly confused - *Routine HEENT Exam Head: Present: normocephalic, atraumatic Eye: Present: EOMI, PERRL ENT: Present: mucous membranes moist Comments: Poor dentition - *Routine Neck Exam Present: supple, full ROM. Absent: JVD - Routine Chest/Breast/Axilla Exam Comments: Prominent ribs across chest - *Routine Respiratory Exam Present: CTA bilaterally. Absent: wheezes, crackles - *Routine Cardiovascular Exam Present: RRR - *Routine Abdominal Exam Present: soft, normoactive bowel sounds - *Routine Extremities Exam Present: edema. Absent: cyanosis, clubbing Comments: Tender to palpation in right upper thigh - *Routine Skin Exam Present: intact. Absent: cyanosis, erythema - *Routine Neurological Exam Present: alert, altered mental status Alert to person, disoriented to place, time, situation. Assessment and Plan (1) Fracture of femoral neck base Current visit: Yes Status: Acute Qualifiers: Encounter type: initial encounter Fracture type: closed Fracture alignment: displaced Laterality: right Qualified Code(s): S72.041A - Displaced fracture of base of neck of right femur, initial encounter for closed fracture Category: Medical Code(s): S72.043A - Displaced fracture of base of neck of unspecified femur, initial encounter for closed fracture (2) Dementia Current visit: Yes Status: Acute Category: Medical Code(s): F03.90 - Unspecified dementia without behavioral disturbance (3) Atrial fibrillation Current visit: Yes Status: Acute Category: Medical Code(s): I48.91 - Unspecified atrial fibrillation (4) Diabetes type 2, controlled Current visit: Yes Status: Acute Qualifiers: Diabetes mellitus natural resources engineer insulin use: without natural resources engineer use Diabetes mellitus complication status: without complication Qualified Code(s): E11.9 - Type 2 diabetes mellitus without complications Category: Medical Code(s): E11.9 - Type 2 diabetes mellitus without complications - Assessment and plan all Dx Assessment and Plan for all problems:: 87-year-old female with femoral neck fracture. Plan to take to surgery tomorrow with orthopedics. Continuing to hold Xarelto. Make n.p.o. tonight at midnight. Pain current tolerable, with minimal use of narcotics. Risk stratification per H&P. Cardiology has seen patient she is currently optimized. Labs in the morning.
--- NOTE | 2018-06-20 08:38 | Progress Note ---
Subjective Date: 06/20/18 Time: 08:35 Principal diagnosis: Right hip fracture, A. Fib Interval history: 87 yo WF in bed in NAD. Pleasantly confused. Denies chest pains. Telemetry shows A. fib with CVR. Exam Vital signs and Labs for Last 24 Hours: Temp Pulse Resp BP Pulse Ox 97.9 F 96 H 20 119/57 L 95 06/20/18 04:09 06/20/18 08:03 06/20/18 04:09 06/20/18 04:09 06/20/18 04:09 Laboratory Results - last 24 hr 06/19/18 11:32: POC Glucose 74 06/19/18 12:34: Blood Type A Positive, Antibody Screen Negative 06/19/18 16:40: POC Glucose 72 06/19/18 20:02: POC Glucose 74 06/20/18 05:46: POC Glucose 71 I & O for Last 24 hours: Intake & Output 06/17/18 06/18/18 06/19/18 06/20/18 11:59 11:59 11:59 11:59 Intake Total 0 / 0 1253 / 1253 Balance 0 / 0 1253 / 1253 Weight 144 lb 9 oz 144 lb 8.984 oz - *Routine Respiratory Exam Present: CTA bilaterally. Absent: accessory muscle use, rales, rhonchi, wheezes - *Routine Cardiovascular Exam Present: irregularly irregular. Absent: murmur, gallop, rubs - *Routine Extremities Exam Absent: edema, calf tenderness Comments: right leg in traction - *Routine Neurological Exam Present: alert, moving all extremities Progress Note: A&P (1) Fracture of femoral neck base Status: Acute Current Visit: Yes (2) Dementia Status: Acute Current Visit: Yes (3) Atrial fibrillation Status: Acute Current Visit: Yes (4) Diabetes type 2, controlled Status: Acute Current Visit: Yes Assessment and Plan for All Diagnoses:: With re-occurence of A. fib, will use lovenox today since Xarelto has been stopped. Surgery has tentatively scheduled for tomorrow. Cardiac status stable. Resume metoprolol XL 50 mg daily.
--- NOTE | 2018-06-20 13:10 | Progress Note ---
Subjective Date: 06/20/18 Time: 11:45 Principal diagnosis: Right hip fracture, A. Fib Interval history: Patient is seen on the floor along with her daughter. Patient has severe dementia and cannot make any meaningful conversation with her. Patient is lying down in bed and appears comfortable. She is awaiting surgery on her right femoral neck fracture. We are planning this tomorrow as was recommended by ditch repairer Dr. Craig. No history of any nausea, vomiting or shortness of breath. PN: Obj Ex Vital signs: Temp Pulse Resp BP Pulse Ox 97.6 F 80 17 109/49 L 90 L 06/20/18 08:00 06/20/18 12:00 06/20/18 08:00 06/20/18 08:00 06/20/18 08:00 Narrative: Laboratory Results - last 24 hr 06/19/18 12:34: Blood Type A Positive, Antibody Screen Negative 06/19/18 16:40: POC Glucose 72 06/19/18 20:02: POC Glucose 74 06/20/18 05:46: POC Glucose 71 06/20/18 11:23: POC Glucose 83 Intake & Output 06/18/18 06/19/18 06/20/18 06/21/18 11:59 11:59 11:59 11:59 Intake Total 0 / 0 1493 / 1493 240 / 240 Balance 0 / 0 1493 / 1493 240 / 240 Weight 144 lb 9 oz 144 lb 8.984 oz Exam General appearance: drowsy, no acute distress Cardiovascular: A. fib, normal peripheral pulses Respiratory: No respiratory distress noted ABD: soft and non tender Neuro: Drowsy, arousable with verbal stimuli, pleasantly confused On examination of her lower extremities, the RIGHT leg is in [place] traction; there is shortening of the RIGHT leg and the foot is externally rotated. On examination of the RIGHT hip the skin is normal. No rashes or lesions noted. She is tender over the RIGHT hip. Any attempted movements of the RIGHT hip are painful. Thigh and calf are soft and nontender. Dorsalis pedis and posterior tibial pulses are palpable 1+ bilaterally. Sensation is grossly intact. She is actively wiggling the foot and ankle. - Urinary Catheter Management [place] Cath placed during this visit: yes Urethral indwelling: Yes Reason for continuing: Surgical procedure Insertion date: 06/20/18 Insertion time: 13:25 Progress Note: A&P (1) Fracture of femoral neck base Status: Acute Current Visit: Yes (2) Dementia Status: Acute Current Visit: Yes (3) Atrial fibrillation Status: Acute Current Visit: Yes (4) Diabetes type 2, controlled Status: Acute Current Visit: Yes Assessment and Plan for All Diagnoses:: I have reviewed the clinical and x-ray/CT scan findings with the patient's daughter. I have discussed the diagnosis, natural history and management options in detail including both nonsurgical and surgical. We had a lengthy and detailed discussion about patient's history, preoperative mobility, recent deterioration in her general condition, and the best management options for her hip fracture. I have told the patient's daughter that the fracture is complex in that there is a comminuted peritrochanteric fracture with extension into the basi-cervical region of the femoral neck. I have recommended surgical remediation in the form of either a cephalo-medullary nailing of the right femur or a hemiarthroplasty of the right hip as deemed appropriate at the time of surgery. I told her that my preference would be to try and fix the fracture with a cephalo-medullary nailing as this would would be the lesser of the 2 surgical options. If we need to perform a hemiarthroplasty, we would use a long- stem prosthesis with the option of cementing the stem if needed. We may also need to perform cerclage wiring/trochanteric cable plating for the greater trochanter fracture. I explained the procedure, risks and benefits, alternatives and the expected postoperative course. I have shown them copies of patient's x-rays and explained with drawings of the fracture and the proposed surgical procedure. The complications discussed include but are not limited to infection, bleeding, injury to nerves and blood vessels, DVT and PE, femur fracture, screw cut-out/implant failure, loss of fixation, nonunion, malunion/malrotation, osteonecrosis of the femoral head, femoral shaft fracture, painful hardware, limb length inequality, dislocation, implant failure, loosening, acetabular wear, osteolysis, periprosthetic femur fracture, heterotopic ossification, abductor weakness and a limp, incomplete relief of pain, incomplete return of function or motion, likely need for further surgery in future including revision, and anesthetic/medical complications including heart attack, stroke, transfusion reactions and even . We discussed how any of these events can be devastating. I have told her that we may need to perform additional fixation including a cable plating of the trochanteric region as necessary. We have discussed nonsurgical alternatives as well. I've explained that the patient is at a significant surgical risk due to her age, medical comorbidities, and fragility of the bone. Patient's daughter seemed to understand and accept these risks. We have discussed nonsurgical alternatives as well. The nonoperative management would essentially consist of prolonged bed rest and traction (skeletal/skin) in bed and pain medication and has exceptionally poor outcome. This could result in nonunion and malunion of the fracture and almost certainly, the patient has a very high risk of decubitus ulcers, UTI, respiratory tract infections, DVT/PE and other complications from being bedridden. I have explained to her that the standard of care for this type of fracture is surgical throughout the country unless the patient is very ill for surgical management. We also discussed the postoperative course including the rehab and physical therapy required. She is a resident of a assisted and is likely to go back there for rehab after surgery. All her questions were answered and she verbalized a good understanding. Patient was cleared for surgery by Dr. Rascon and Dr. Craig with appropriate risk stratification. Surgery was delayed until tomorrow as part Dr. Craig's recommendation because of the patient's anticoagulation. The limb was marked appropriately and initialed by me. I have recommended- Nothing by mouth from midnight Continue IV fluids Analgesia as needed DVT prophylaxis as per protocol Consent patient for a cephalo-medullary nailing, right femur/hemiarthroplasty right hip. Order 2 g of IV Ancef for preoperative prophylaxis to start half an hour before surgery. The OR has been informed and the patient is scheduled for surgery tomorrow. I have also requested a preoperative evaluation by the anesthetic team. Continue medical management as per Dr. Rascon.
[2018-06-20 13:30] LABS: Microscopic, Urine URINE MICROSCOPIC (MICROSCOPIC)
[2018-06-20 13:37] LABS: Appearance,Urine CLOUDY (Clear); Blood, Urine Negative (Negative); Color,Urine YELLOW (Yellow); Glucose,Urine (UA) Negative (Negative); Ketones,Urine TRACE (Negative); Leukocyte Esterase,Urine 1+ (Negative); Protein,Urine Negative (Negative); Specific Gravity, Urine >= 1.030 (1.005-1.030); Urobilinogen,Urine 0.2 EU/dl (0.2)
[2018-06-20 13:43] LABS: Bilirubin,Urine Negative (Negative)
[2018-06-20 13:46] LABS: Bacteria,Urine Trace /lpf
[2018-06-21 07:51] LABS: Albumin Level 2.1 gm/dL (3.4-5.0); Albumin/Globulin Ratio 0.6 (1.1-1.8); Anion Gap 11.1 mEq/L (5-15); Bilirubin,Total 1.4 mg/dL (0.2-1.0); Calcium 8.2 mg/dL (8.5-10.1); Globulin 3.4 gm/dl (1.3-3.2); Potassium 4.1 mmoL/L (3.5-5.1); Total Protein,Serum 5.5 gm/dL (6.4-8.2)
--- NOTE | 2018-06-21 08:16 | Progress Note ---
Internal Medicine - PN: Subj *Date: 06/21/18 *Time: 08:14 Interval history: Patient remains demented, talkative, pleasant. Does respond to commands. Exam Vital signs and Labs for Last 24 Hours: Temp Pulse Resp BP Pulse Ox 98.0 F 85 17 128/60 96 06/21/18 08:00 06/21/18 08:00 06/21/18 08:00 06/21/18 08:00 06/21/18 08:00 Laboratory Results - last 24 hr 06/20/18 11:23: POC Glucose 83 06/20/18 13:29: Urine Color Yellow, Urine Appearance Cloudy, Urine pH 6.0, Ur Specific [place] >= 1.030, Urine Protein Negative, Urine Glucose (UA) Negative, Urine Ketones Trace, Urine Blood Negative, Urine Nitrate Negative, Urine Bilirubin Negative, Urine Urobilinogen 0.2, Ur Leukocyte Esterase 1+ A, Urine RBC None, Urine WBC 10-20, Ur Squamous Epith Cells 10-20, Urine Bacteria Trace 06/20/18 16:16: POC Glucose 110 06/20/18 20:57: POC Glucose 133 H 06/21/18 06:07: POC Glucose 103 06/21/18 07:25: Sodium 137, Potassium 4.1, Chloride 105, Carbon Dioxide 25, Anion Gap 11.1, BUN 22 H D, Creatinine 1.03 H, Estimated Creat Clear 41, Estimated GFR 51 L, Est GFR ( Amer) 62, Glucose 111 H, Calcium 8.2 L, Total Bilirubin 1.4 H, AST 8 L D, ALT 17, Alkaline Phosphatase 94, Total Protein 5.5 L, Albumin 2.1 L, Globulin 3.4 H, Albumin/Globulin Ratio 0.6 L I & O for Last 24 hours: Intake & Output 06/18/18 06/19/18 06/20/18 06/21/18 11:59 11:59 11:59 11:59 Intake Total 0 / 0 1493 / 1493 240 / 240 Balance 0 / 0 1493 / 1493 240 / 240 Weight 144 lb 9 oz 144 lb 8.984 oz Narrative: Patient is pleasant and alert. Significantly demented. Heart rate rate controlled but occasional ectopic beats. Lungs are clear in the anterior salguero, abdomen soft. No skin breakdown. Able to wiggle all of her toes and good capillary refill. Right leg and splint. Assessment and Plan (1) Fracture of femoral neck base Current visit: Yes Status: Acute Qualifiers: Encounter type: initial encounter Fracture type: closed Fracture alignment: displaced Laterality: right Qualified Code(s): S72.041A - Displaced fracture of base of neck of right femur, initial encounter for closed fracture Category: Medical Code(s): S72.043A - Displaced fracture of base of neck of unspecified femur, initial encounter for closed fracture (2) Dementia Current visit: Yes Status: Acute Category: Medical Code(s): F03.90 - Unspecified dementia without behavioral disturbance (3) Atrial fibrillation Current visit: Yes Status: Acute Category: Medical Code(s): I48.91 - Unspecified atrial fibrillation (4) Diabetes type 2, controlled Current visit: Yes Status: Acute Qualifiers: Diabetes mellitus terminal system operator insulin use: without terminal system operator use Diabetes mellitus complication status: without complication Qualified Code(s): E11.9 - Type 2 diabetes mellitus without complications Category: Medical Code(s): E11.9 - Type 2 diabetes mellitus without complications - Assessment and plan all Dx Assessment and Plan for all problems:: Previous note reviewed. No changes in plan at this point. Await surgery results from later today. We will follow postoperatively.
--- NOTE | 2018-06-21 08:40 | Progress Note ---
[facility] Anesthesia Checklist - Patient Identification Patient Identification: Arm Band, Verbal (Name & ) - Structural Data Admitted From: Inpatient Planned Operative Procedure/s: right hip gamma nail Consent for Planned Operative Procedure(s) Verified: Yes Verified Documents: History and Physical - NPO Status Verified Time NPO: 00:00 - Additional verifications Patient : No Anesthesia Reactions: No Hx Blood Transfusions: No Blood Transfusion Reaction: No Cephalosporin Allergy: No Previous Colonoscopy: No - Cardiovascular Assessment Pulse Strength: Strong Pulse Rhythm: Irregular Peripheral Edema: No - Airway Assessment C-Spine Mobility Assessed: Yes TMJ Mobility Assessed: Yes Dentition: Good Dentition - Neurological Assessment Level of Consciousness: Awake, Alert, Inappropriate Hx Seizures: No Numbness or tingling in extremities: No - Anesthesia Plan Anesthesia Risk discussed: Yes Anesthesia Plan: Not verified due to Patient Condition ASA Class: III Anesthesia Type: Spinal [facility] History I have reviewed the patient's past medical history: Yes Medical History: Reports:: Atrial Fibrillation, Diabetes Mellitus Type 2 (NOT AN ISSUE AT THIS PRESENT TIME) Have you ever received a pneumonia vaccine?: Yes Have you received a flu vaccine this season?: No Other Surgeries: Yes: Cholecystectomy, Other (GASTRIC REMOVAL) - *Social History Educational Level: Attended College Smoking Status: Never smoker Alcohol Intake: never Occupational Status: retired Housing: snf Travel in the last 8 weeks: None - Psychiatric History Expresses thoughts of harming self/others: None Suicide Plan Description: No Plan *Family Hx:: Coronary Artery Disease, Diabetes, Heart Attack, Hyperlipidemia, Hypertension
--- NOTE | 2018-06-21 14:01 | Progress Note ---
Subjective Date: 06/21/18 Time: 10:20 Principal diagnosis: Right hip fracture, A. Fib Interval history: This is an 87-year-old female who was admitted to the hospital and she is planning to undergo hip surgery today. She is pleasantly confused. She does not indicate any chest pain, pressure, shortness of breath or edema. No fever chills nausea vomiting diarrhea PND or orthopnea. Exam Vital signs and Labs for Last 24 Hours: Temp Pulse Resp BP Pulse Ox 98.3 F 95 H 16 150/70 H 93 L 06/21/18 11:18 06/21/18 12:00 06/21/18 11:18 06/21/18 11:18 06/21/18 11:18 Laboratory Results - last 24 hr 06/20/18 16:16: POC Glucose 110 06/20/18 20:57: POC Glucose 133 H 06/21/18 06:07: POC Glucose 103 06/21/18 07:25: Sodium 137, Potassium 4.1, Chloride 105, Carbon Dioxide 25, Anion Gap 11.1, BUN 22 H D, Creatinine 1.03 H, Estimated Creat Clear 41, Estimated GFR 51 L, Est GFR ( Amer) 62, Glucose 111 H, Calcium 8.2 L, Total Bilirubin 1.4 H, AST 8 L D, ALT 17, Alkaline Phosphatase 94, Total Protein 5.5 L, Albumin 2.1 L, Globulin 3.4 H, Albumin/Globulin Ratio 0.6 L 06/21/18 10:50: POC Glucose 96 I & O for Last 24 hours: Intake & Output 06/18/18 06/19/18 06/20/18 06/21/18 23:59 23:59 23:59 23:59 Intake Total 240 / 240 1493 / 1493 0 / 0 Balance 240 / 240 1493 / 1493 0 / 0 Weight 144 lb 9 oz 144 lb 8.984 oz Microbiology Reports for the Last 24 Hours: Microbiology 06/20/18 13:29 Urine,Catheterized Urine Culture - Preliminary NO GROWTH AFTER 24 HOURS Narrative: Her telemetry strip is atrial fibrillation with a rate of 77. - Constitutional no acute distress, average body habitus - *Routine HEENT Exam Head: Present: normocephalic, atraumatic Eye: Present: EOMI, PERRL ENT: Present: mucous membranes moist - *Routine Neck Exam Present: supple, full ROM. Absent: JVD, carotid bruit, lymphadenopathy - *Routine Respiratory Exam Present: CTA bilaterally - *Routine Cardiovascular Exam Present: Normal S1, Normal S2, irregularly irregular. Absent: murmur, gallop - *Routine Abdominal Exam Present: soft, normoactive bowel sounds. Absent: tenderness, distended - *Routine Extremities Exam Present: pulses intact. Absent: cyanosis, clubbing, edema - *Routine Skin Exam Present: intact, warm. Absent: erythema, rash - *Routine Neurological Exam Present: alert Is pleasantly confused. She is oriented to person Progress Note: A&P (1) Fracture of femoral neck base Status: Acute Current Visit: Yes (2) Dementia Status: Acute Current Visit: Yes (3) Atrial fibrillation Status: Acute Current Visit: Yes (4) Diabetes type 2, controlled Status: Acute Current Visit: Yes Assessment and Plan for All Diagnoses:: Plan: 1. The patient was admitted to the hospital after having a. Patient is scheduled to undergo surgery on her hip today. She has already been cleared for cardiac standpoint. 2. She denies any chest pain or pressure. No plans for invasive cardiac testing. 3. Her atrial fibrillation is rate controlled. Currently getting Lovenox for anticoagulation. Following surgery she will need to be started back on Xarelto. 4. Her blood pressure is well controlled. 5. Her LDL goal is less than 100. 6. She is pleasantly confused. She does reorient easily 7. No further recommend patient is at this time from a cardiovascular standpoint. Thank you for the opportunity help to spend care of this patient.
--- NOTE | 2018-06-21 17:02 | Progress Note ---
[facility] Anesthesia Record Part I Intake, IV Amount: 1,600 Estimated blood loss (mL): 200 Urine output (mL): 75 Blood Pressure: 118/69 SaO2: 95 Pulse Rate: 76 Respiratory Rate: 16 Temperature: 97 F Patient is:: Drowsy, Stable Stable to PACU at:: 16:50
--- NOTE | 2018-06-21 17:02 | Progress Note ---
[facility] Anesthesia Record Part II Discharge Time: 17:20 Destination: 2nd floor PACU nurse assessment reviewed?: Yes Patient Condition:: Good Anesthesia Complications:: None Swallowing reflex intact?: Yes Cyanosis?: No
--- NOTE | 2018-06-21 17:10 | Operative Note ---
Date of procedure: 06/21/18 Pre-op Diagnosis:: Closed, comminuted, displaced and unstable femoral neck fracture, right hip Post-op Diagnosis:: Same Procedure performed:: Closed reduction and stabilization with a long cephalo-medullary nail (Jax Gamma nail), right femur Surgeon:: Dorian Cotto MD Manager Research And Development(s):: Sarah Yung PHARMACEUTICAL DEVELOPMENT TECHNICIAN:: Drew Kruger Anesthesia: spinal Estimated blood loss (mL): 200 Clinical Note:: Patient is an 86-year-old female with severe dementia, who sustained a complex comminuted, displaced proximal femur fracture of the right hip. [facility] a [facility] a [facility] and sustained the injury following a [facility] at the [facility] 4 days ago. After evaluation in the emergency room patient was admitted for further management. Following admission, her surgery was delayed because of her anticoagulation as per the equipment associate recommendation. After evaluating the patient, I have discussed the diagnosis and management options in detail including nonsurgical and surgical, with the patient's daughter. Patient has severe dementia and confused at baseline. Patient has very limited mobility prior to injury and only walks short distances with a walker and 1 person help. After a detailed discussion with the patient's daughter a decision was made to surgically manage the fracture with either a closed reduction and cephalo- medullary nailing or perform a hemiarthroplasty with a long stem prosthesis. I have discussed the procedure, risks and benefits, postoperative recovery and rehabilitation and the expected outcomes. The complications discussed include but are not limited to DVT, PE, infection, bleeding, injury to nerves and blood vessels, screw cut-out/implant failure, loss of fixation, nonunion, malunion/malrotation, osteonecrosis of the femoral head, femoral shaft fracture, painful hardware, heterotopic ossification, stiffness, weakness, incomplete relief of pain, incomplete return of function or motion and the likely need for further surgery in future, and anesthetic/medical complications including heart attack, stroke, transfusion reaction or . She wished to proceed with the surgical remediation. Consent form was reviewed and signed. The limb was appropriately marked. Following appropriate preoperative workup, medical and cardiac clearance, patient is brought to the operating room for surgery. The surgery is indicated to reduce and stabilize the fracture, relieve pain and improve function. Operative findings:: Comminuted, displaced and unstable proximal femur fracture, RIGHT hip as noted on the preoperative imaging. The fracture is well reduced with closed manipulation prior to fixation. Bone is osteoporotic but overall quality is satisfactory. Operative note:: Following appropriate preoperative workup and medical/cardiac clearance, patient was brought to the operating room and a spinal anesthesia was administered. Patient was then positioned supine on the fracture table and all the bony prominences were appropriately padded. The RIGHT foot was secured in the footplate and the footplate was attached to the fracture table. The LEFT leg was placed out of the way in a leg gallegos. Under fluoroscopic guidance the fracture was reduced by traction and satisfactory reduction was obtained. The reduction was confirmed on both AP and lateral views. The RIGHT hip and thigh were then prepped and draped in the usual sterile fashion. Administration of prophylactic antibiotics was confirmed with the anesthetic team (2 g of IV Ancef was administered). A preprocedure timeout was performed as per the hospital protocol. After marking the level of the greater trochanter on the skin under fluoroscopy, a skin incision was made proximal to the greater trochanter in line with the femoral shaft. The dissection was then carried through the subcutaneous tissue. The tensor fascia muscle was split in line with the fibers. This provided access to the tip of the greater trochanter. Under fluoroscopic guidance a guidewire was placed at the tip of the greater trochanter, the position was confirmed on both AP and lateral fluoroscopic views and the guidewire is advanced into the proximal femur. The proximal segment was then reamed over the guidewire and the guidewire was then exchanged for a longer ball-tipped guidewire which was advanced into the distal femur. The position of the guidewire was confirmed in both AP and lateral views. Then sequential reaming was performed over the guidewire up to 14.5 mm reamer. The required nail length was measured. A 130 degree angle, 13 mm diameter, long (360 mm) RIGHT Watkins Gamma 3 nail was selected. The selected nail was attached to the proximal jig and the nail was then inserted into the femur under fluoroscopic guidance. After seating the nail to the appropriate level, I proceeded to introduce the lag screw. We used the [employer] computer navigation system for placement of the lag screw. The lag screw sheath assembly was placed through the appropriate hole in the jig and locked in place. Then a 1 inch skin incision was made over the lateral thigh at this level. The incision was deepened through soft tissue and the fascia luis manuel and the muscle was split. The trocar was removed and a guide pin was placed into the femoral head under fluoroscopic control. After confirming satisfactory placement of the guidepin in both AP and lateral fluoroscopic views the length was measured. A 95 mm lag screw was then selected. I then placed a K wire proximally into the femoral head to act as a derotation pin while placing the lag screw. Then drilling was performed over the guidewire for the lag screw. The lag screw was then introduced over the guidewire and advanced to an appropriate level. I then placed the antirotation U pin over the lag screw and advance it to the appropriate level and secured the pin in place with the locking bolt. The derotation K wire placed proximally in the femoral head was then removed, traction was reduced and fracture site compressed. The lag screw was then secured in place with the set screw. After final seating of the lag screw the tip apex distance was 12 mm. I then proceeded to perform the distal locking through the static hole- we used the [employer] Gamma nail distal locking jig for this. After appropriately lining the drill sleeve and nail under fluoroscopic guidance, the drill sleeve was placed through the static hole and a 1 cm skin incision was made. Through the drill sleeve the 4.3 mm drill was introduced and the drill hole made for the distal locking screw. The screw length was measured and a 5 mm x 45 mm cortical bone screw was introduced through the static locking hole. The distal and proximal jigs were then removed and fluoroscopic screening was performed in both the AP and lateral views. The reduction and fixation were noted to be satisfactory and stable. Fluoroscopic images were obtained and stored digitally. The wounds were washed out with copious amounts of normal saline and hemostasis was obtained with the diathermy cautery. The wounds were then closed in layers with the 0 Vicryl, 2-0 Vicryl and 4-0 Monocryl subcuticular sutures, Dermabond and Steri-Strips/to the skin. Sterile dressings were applied. The foot was taken out of the foot gallegos and the opposite leg out of the leg gallegos and placed on the table extension. The limb lengths were noted to be equal and there was no rotational malalignment. Dorsalis pedis and posterior tibial pulses were 1+ on both sides. At the end of the procedure, swab, needle and instrument counts were correct according to the scrub team. Patient was then transferred onto the bed and transported to the PACU in a stable condition. Patient tolerated the procedure well and there were no immediate complications. Portable x-rays of the hip/femur AP and cross-table lateral views were obtained in the PACU and were noted to be satisfactory. Postoperatively patient will receive 3 further doses of prophylactic antibiotics, DVT prophylaxis as per protocol and IV and oral analgesia as needed. Medical management as per Dr. Wang team. Patient can be mobilized on the first postoperative day with a walker, weight bearing on the right side as tolerated. Implants: Watkins Gamma 3 long nailing system-130 degree angle, 13 mm diameter, long (360 mm) RIGHT Watkins Gamma 3 nail 10.5 mm x 95 mm lag screw 5 mm x 45 mm distal locking screw (Industry community engagement representative: Efe Glover from [employer]) Condition: stable Disposition: PACU Specimens:: None Complications:: None
[2018-06-22 06:54] LABS: Basophils % 0.6 % (0.1-2.0); Eosinophils # 0.1 K/mm3 (0.0-0.4); Eosinophils % 1.4 % (0.1-12.0); Hematocrit 32.4 % (37.0-47.0); Hemoglobin 9.7 g/dL (12.2-16.2); Lymphocytes # 1.3 K/mm3 (0.7-4.5); Lymphocytes % 19.4 % (10-50); Mean Corpuscular HGB Conc 30.1 g/dL (31.8-35.4); Mean Corpuscular Hemoglobin 29.9 pg (27.0-31.2); Mean Corpuscular Volume 99.4 fl (81-99); Mean Platelet Volume 9.2 fl (7.4-10.4); Monocytes # 0.5 K/mm3 (0.1-1.0); Monocytes % 7.5 % (1.7-9.3); Neutrophils # 4.9 K/mm3 (1.8-7.8); Neutrophils % 71.2 % (37.0-80.0); Platelet Count 228 K/mm3 (142-424); Red Blood Count 3.26 M/mm3 (4.20-5.40); Red Cell Distribution Width 15.1 % (11.5-17.5); White Blood Count 6.9 K/mm3 (4.8-10.8)
[2018-06-22 07:06] LABS: Albumin Level 1.8 gm/dL (3.4-5.0); Albumin/Globulin Ratio 0.5 (1.1-1.8); Anion Gap 12.2 mEq/L (5-15); Bilirubin,Total 1.1 mg/dL (0.2-1.0); Calcium 7.9 mg/dL (8.5-10.1); Globulin 3.3 gm/dl (1.3-3.2); Potassium 4.2 mmoL/L (3.5-5.1); Total Protein,Serum 5.1 gm/dL (6.4-8.2)
--- NOTE | 2018-06-22 07:34 | Progress Note ---
Internal Medicine - PN: Subj *Date: 06/22/18 *Time: 07:33 Interval history: Patient did well overnight except for some hallucinatory activity which is actually her baseline given her significant dementia. Operative note was reviewed. Surgery seemed to go very smoothly. Patient denies pain this morning and does not really remember that she had surgery yesterday. Exam Vital signs and Labs for Last 24 Hours: Temp Pulse Resp BP Pulse Ox 98.0 F 104 H 18 136/64 96 06/22/18 04:00 06/22/18 04:00 06/22/18 00:00 06/22/18 00:00 06/22/18 00:00 Laboratory Results - last 24 hr 06/21/18 07:25: Sodium 137, Potassium 4.1, Chloride 105, Carbon Dioxide 25, Anion Gap 11.1, BUN 22 H D, Creatinine 1.03 H, Estimated Creat Clear 41, Estimated GFR 51 L, Est GFR ( Amer) 62, Glucose 111 H, Calcium 8.2 L, Total Bilirubin 1.4 H, AST 8 L D, ALT 17, Alkaline Phosphatase 94, Total Protein 5.5 L, Albumin 2.1 L, Globulin 3.4 H, Albumin/Globulin Ratio 0.6 L 06/21/18 10:50: POC Glucose 96 06/21/18 16:54: POC Glucose 87 06/21/18 21:03: POC Glucose 97 06/22/18 06:13: POC Glucose 96 06/22/18 06:28: WBC 6.9, RBC 3.26 L, Hgb 9.7 L, Hct 32.4 L, MCV 99.4 H, MCH 29.9, MCHC 30.1 L, RDW 15.1, Plt Count 228, MPV 9.2, Neut % (Auto) 71.2, Lymph % (Auto) 19.4, [place] % (Auto) 7.5, Eos % (Auto) 1.4, Baso % (Auto) 0.6, Neut # (Auto) 4.9, Lymph # (Auto) 1.3, [place] # (Auto) 0.5, Eos # (Auto) 0.1, Baso # (Auto) 0.0 06/22/18 06:28: Sodium 138, Potassium 4.2, Chloride 105, Carbon Dioxide 25, Anion Gap 12.2, BUN 20 H, Creatinine 0.88, Estimated Creat Clear 43, Estimated GFR 61, Est GFR ( Amer) 74, Glucose 102, Calcium 7.9 L, Total Bilirubin 1.1 H, AST 12 L D, ALT 14, Alkaline Phosphatase 79, Total Protein 5.1 L, Albumin 1.8 L D, Globulin 3.3 H, Albumin/Globulin Ratio 0.5 L I & O for Last 24 hours: Intake & Output 06/19/18 06/20/18 06/21/18 06/22/18 11:59 11:59 11:59 11:59 Intake Total 0 / 0 1493 / 1493 240 / 240 1600 / 1600 Output Total 400 / 400 Balance 0 / 0 1493 / 1493 240 / 240 1200 / 1200 Weight 144 lb 9 oz 144 lb 8.984 oz Microbiology Reports for the Last 24 Hours: Microbiology 06/20/18 13:29 Urine,Catheterized Urine Culture - Preliminary NO GROWTH AFTER 24 HOURS Narrative: She is alert. Pleasant. Talkative. Very demented. Is cooperative however it is able to be reoriented to her hospital status. Anterior lung salguero are clear, heart rate irregular. Abdomen is nontender. Dressing over the right hip incision is clean/dry/intact. No dural edema. She is able to wiggle her toes well with good pulses Assessment and Plan (1) Fracture of femoral neck base Current visit: Yes Status: Acute Qualifiers: Encounter type: initial encounter Fracture type: closed Fracture alignment: displaced Laterality: right Qualified Code(s): S72.041A - Displaced fracture of base of neck of right femur, initial encounter for closed fracture Category: Medical Code(s): S72.043A - Displaced fracture of base of neck of unspecified femur, initial encounter for closed fracture (2) Dementia Current visit: Yes Status: Acute Category: Medical Code(s): F03.90 - Unspecified dementia without behavioral disturbance (3) Atrial fibrillation Current visit: Yes Status: Acute Category: Medical Code(s): I48.91 - Unspecified atrial fibrillation (4) Diabetes type 2, controlled Current visit: Yes Status: Acute Qualifiers: Diabetes mellitus attendance clerk insulin use: without fci use Diabetes mellitus complication status: without complication Qualified Code(s): E11.9 - Type 2 diabetes mellitus without complications Category: Medical Code(s): E11.9 - Type 2 diabetes mellitus without complications - Assessment and plan all Dx Assessment and Plan for all problems:: Overall doing well postoperatively. Labs reviewed. Expected slight decrease in hemoglobin. New F monitor this tomorrow. Plan for transfer back to skilled care facility tomorrow. Needs ongoing monitoring of blood pressure and cardiac status. I would recommend not continuing anticoagulation given her history of fall.
--- NOTE | 2018-06-22 13:12 | Progress Note ---
Subjective Date: 06/22/18 Time: 12:00 Principal diagnosis: Right hip fracture, A. Fib Interval history: Patient is status post cephalo-medullary nailing right femur, post op day #1. Patient is lying down in bed. Patient is pleasantly confused and talkative. Given her dementia it is difficult to make any meaningful conversation with her. Nursing staff reports that she is her usual self and has not had any problems postop. She is not complaining of any pain or discomfort. No history of any nausea or vomiting. No history of any cough, chest pain, shortness of breath or palpitations. She is eating and drinking well. I understand patient got out of bed with the help of physical therapy this morning PN: Obj Ex Vital signs: Temp Pulse Resp BP Pulse Ox 98.8 F 86 16 126/70 94 L 06/22/18 12:00 06/22/18 12:00 06/22/18 12:00 06/22/18 12:00 06/22/18 12:00 Narrative: Laboratory Results - last 24 hr 06/21/18 16:54: POC Glucose 87 06/21/18 21:03: POC Glucose 97 06/22/18 06:13: POC Glucose 96 06/22/18 06:28: WBC 6.9, RBC 3.26 L, Hgb 9.7 L, Hct 32.4 L, MCV 99.4 H, MCH 29.9, MCHC 30.1 L, RDW 15.1, Plt Count 228, MPV 9.2, Neut % (Auto) 71.2, Lymph % (Auto) 19.4, [place] % (Auto) 7.5, Eos % (Auto) 1.4, Baso % (Auto) 0.6, Neut # (Auto) 4.9, Lymph # (Auto) 1.3, [place] # (Auto) 0.5, Eos # (Auto) 0.1, Baso # (Auto) 0.0 06/22/18 06:28: Sodium 138, Potassium 4.2, Chloride 105, Carbon Dioxide 25, Anion Gap 12.2, BUN 20 H, Creatinine 0.88, Estimated Creat Clear 43, Estimated GFR 61, Est GFR ( Amer) 74, Glucose 102, Calcium 7.9 L, Total Bilirubin 1.1 H, AST 12 L D, ALT 14, Alkaline Phosphatase 79, Total Protein 5.1 L, Albumin 1.8 L D, Globulin 3.3 H, Albumin/Globulin Ratio 0.5 L Intake & Output 06/20/18 06/21/18 06/22/18 06/23/18 11:59 11:59 11:59 11:59 Intake Total 1493 / 1493 240 / 240 1840 / 1840 Output Total 400 / 400 Balance 1493 / 1493 240 / 240 1440 / 1440 Weight 144 lb 8.984 oz Exam General appearance: alert, active, awake, no acute distress Cardiovascular: Irregular rate, normal peripheral pulses Respiratory: No respiratory distress noted, speaks in full sentences ABD: soft and non tender Neuro: alert, awake, dementia at baseline Genitourinary: Catheter in situ. On examination of the lower extremities the limb lengths are equal. Thigh and calf are soft and nontender. On examination of the right hip and thigh, the dressings are clean, dry and intact. Distal pulses are 1+. She is actively wiggling her toes when asked to do so. Reviewed the postoperative x-rays along with the radiologist report. The x-rays are satisfactory with well reduced and well fixed right femoral neck fracture. - Urinary Catheter Management [place] Cath placed during this visit: yes Urethral indwelling: Yes Reason for continuing: Surgical procedure Insertion date: 06/20/18 Insertion time: 13:25 Progress Note: A&P (1) Fracture of femoral neck base Status: Acute Current Visit: Yes (2) Dementia Status: Acute Current Visit: Yes (3) Atrial fibrillation Status: Acute Current Visit: Yes (4) Diabetes type 2, controlled Status: Acute Current Visit: Yes Assessment and Plan for All Diagnoses:: I reviewed the clinical findings and progress. She seems to be doing well without any postop problems. Continue physical therapy/mobilization weightbearing as tolerated on the right side with the walker. Continue DVT prophylaxis. Discontinue the urinary catheter. Patient is likely to be discharged back to custodial tomorrow. Recommend DVT prophylaxis for 5 weeks postop- the appropriate agents include Lovenox, Aspirin 325 mg, Xarelto (Rivaroxaban), Eliquis (apixaban) and Coumadin. Follow-up in my office in 2 weeks time with check x-ray. Please feel free to call our office at [phone] for any orthopaedic questions. Medical management as per Dr. Rodriguez.
--- NOTE | 2018-06-22 14:30 | Progress Note ---
Subjective Date: 06/22/18 Time: 14:27 Principal diagnosis: Right hip fracture, A. Fib Interval history: 87 yo WF in bed in NAD. Continues to be pleasantly confused. Denies any chest pain. She has been up with help from PT today. Plans for return to [place] tomorrow. Exam Vital signs and Labs for Last 24 Hours: Temp Pulse Resp BP Pulse Ox 98.8 F 86 16 126/70 94 L 06/22/18 12:00 06/22/18 12:00 06/22/18 12:00 06/22/18 12:00 06/22/18 12:00 Laboratory Results - last 24 hr 06/21/18 16:54: POC Glucose 87 06/21/18 21:03: POC Glucose 97 06/22/18 06:13: POC Glucose 96 06/22/18 06:28: WBC 6.9, RBC 3.26 L, Hgb 9.7 L, Hct 32.4 L, MCV 99.4 H, MCH 29.9, MCHC 30.1 L, RDW 15.1, Plt Count 228, MPV 9.2, Neut % (Auto) 71.2, Lymph % (Auto) 19.4, [place] % (Auto) 7.5, Eos % (Auto) 1.4, Baso % (Auto) 0.6, Neut # (Auto) 4.9, Lymph # (Auto) 1.3, [place] # (Auto) 0.5, Eos # (Auto) 0.1, Baso # (Auto) 0.0 06/22/18 06:28: Sodium 138, Potassium 4.2, Chloride 105, Carbon Dioxide 25, Anion Gap 12.2, BUN 20 H, Creatinine 0.88, Estimated Creat Clear 43, Estimated GFR 61, Est GFR ( Amer) 74, Glucose 102, Calcium 7.9 L, Total Bilirubin 1.1 H, AST 12 L D, ALT 14, Alkaline Phosphatase 79, Total Protein 5.1 L, Albumin 1.8 L D, Globulin 3.3 H, Albumin/Globulin Ratio 0.5 L I & O for Last 24 hours: Intake & Output 06/20/18 06/21/18 06/22/18 06/23/18 11:59 11:59 11:59 11:59 Intake Total 1493 / 1493 240 / 240 1840 / 1840 240 / 240 Output Total 400 / 400 Balance 1493 / 1493 240 / 240 1440 / 1440 240 / 240 Weight 144 lb 8.984 oz Microbiology Reports for the Last 24 Hours: Microbiology 06/20/18 13:29 Urine,Catheterized Urine Culture - Preliminary - *Routine Respiratory Exam Present: CTA bilaterally. Absent: accessory muscle use, rales, rhonchi, wheezes - *Routine Cardiovascular Exam Present: RRR. Absent: murmur, gallop, rubs Progress Note: A&P (1) Fracture of femoral neck base Status: Acute Current Visit: Yes (2) Dementia Status: Acute Current Visit: Yes (3) Atrial fibrillation Status: Acute Current Visit: Yes (4) Diabetes type 2, controlled Status: Acute Current Visit: Yes Assessment and Plan for All Diagnoses:: Nothing further to add from Cardiology standpoint. A. fib with elevated CHADS score but with high fall risk. 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 Will see as needed.
[2018-06-23 07:06] LABS: Anion Gap 11.6 mEq/L (5-15); Basophils % 0.5 % (0.1-2.0); Calcium 8.2 mg/dL (8.5-10.1); Eosinophils # 0.1 K/mm3 (0.0-0.4); Eosinophils % 1.7 % (0.1-12.0); Hematocrit 28.9 % (37.0-47.0); Lymphocytes % 17.1 % (10-50); Mean Corpuscular HGB Conc 30.3 g/dL (31.8-35.4); Mean Corpuscular Hemoglobin 29.9 pg (27.0-31.2); Mean Corpuscular Volume 98.8 fl (81-99); Mean Platelet Volume 9.1 fl (7.4-10.4); Monocytes # 0.5 K/mm3 (0.1-1.0); Monocytes % 8.1 % (1.7-9.3); Neutrophils # 4.1 K/mm3 (1.8-7.8); Neutrophils % 72.5 % (37.0-80.0); Platelet Count 216 K/mm3 (142-424); Potassium 3.6 mmoL/L (3.5-5.1); Red Blood Count 2.92 M/mm3 (4.20-5.40); White Blood Count 5.7 K/mm3 (4.8-10.8)
[2018-06-23 07:38] LABS: Hemoglobin 8.8 g/dL (12.2-16.2)
--- NOTE | 2018-06-23 08:13 | Discharge Summary ---
General - General Admission date:: 06/18/18 Discharge date: 06/23/18 HPI HPI: Ms. Nava is an 87 yo F who resides at a prison. She reportedly fell at the prison on 06/17. She subsequently has been c/o severe right hip pain with any movement. Imaging shows a femoral neck fracture through the greater trochanter. Her condition is complicated by her chronic anticoagulation use. Unable to obtain much history due to patient's dementia and no patient advocate or family at bedside. At this time she reports that she has some leg pain but she does not think her leg is broken as she was walking. She also thinks she is in [place], and asks if her mom is with her. Unable to obtain review of systems Hospital Course Hospital Course: Patient was admitted, she was held in hospital for appropriate 3-day window to allow her anticoagulation to subside and was evaluated by cardiology for clearance for the trochanter fracture repair. This was accomplished and she was taken to the OR morning of June 21 and underwent the ORIF of the right hip fracture. Surgery was accomplished without incident. Patient did well postoperatively. Postoperatively she has done well after Montano Was discontinued. Has evidence of several organisms on urine culture but is on chronic Macrobid therapy. Has no evidence of acute urinary tract infection. She has had postoperative anemia, with hemoglobin down to 8.8. But no evidence of active bleeding, and no symptoms of dyspnea, chest pain or other perfusion issues. As a result, today she will be transferred back to her normal prison-she will be transition into a skilled care bed for rehabilitation. Please note that she will need CBC and BMP at the next available lab draw to follow her postoperative anemia and kidney function respectively. In light of her fall and ongoing fall risk and advanced age I recommended holding anticoagulation. Obviously this has some inherent risks given her chronic A. fib and high chads score, but given the reality of her fall and bleeding risk anticoagulation carries too high of a risk in this frail individual. She will have PT/OT evaluation at the prison. Objective Vital signs: Temp Pulse Resp BP Pulse Ox 98.6 F 77 18 116/65 95 06/23/18 04:00 06/23/18 04:00 06/23/18 04:00 06/23/18 04:00 06/23/18 04:00 Narrative: Patient is pleasant, talkative, will respond to commands, is disoriented to place and time with her underlying dementia however this is unchanged. Oropharynx moist. No lesions. Heart rate irregular. Flow murmur noted. Good air movement in both anterior lung salguero. Abdomen is soft and nontender. Extremities are warm and well-perfused. Right bandage over the surgical site is dry and intact. She is able to move her extremities well. Flexion of the right hip does cause some pain. Good foot pulses bilaterally. Cranial nerves are intact. Sensation in the extremities and movement are normal. Results Labs on day of discharge: Labs from last 24 hours 06/23/18 06/23/18 06/23/18 06:20 06:20 05:40 WBC 5.7 RBC 2.92 L Hgb 8.8 L Hct 28.9 L MCV 98.8 MCH 29.9 MCHC 30.3 L RDW 15.0 Plt Count 216 MPV 9.1 Neut % (Auto) 72.5 Lymph % (Auto) 17.1 Price % (Auto) 8.1 Eos % (Auto) 1.7 Baso % (Auto) 0.5 Neut # (Auto) 4.1 Lymph # (Auto) 1.0 Price # (Auto) 0.5 Eos # (Auto) 0.1 Baso # (Auto) 0.0 Sodium 138 Potassium 3.6 Chloride 104 Carbon Dioxide 26 Anion Gap 11.6 BUN 16 Creatinine 0.85 Estimated Creat Clear 43 Estimated GFR 64 Est GFR ( Amer) 77 Glucose 82 POC Glucose 81 Calcium 8.2 L 06/22/18 06/22/18 06/22/18 21:21 16:38 14:23 WBC RBC Hgb Hct MCV MCH MCHC RDW Plt Count MPV Neut % (Auto) Lymph % (Auto) Price % (Auto) Eos % (Auto) Baso % (Auto) Neut # (Auto) Lymph # (Auto) Price # (Auto) Eos # (Auto) Baso # (Auto) Sodium Potassium Chloride Carbon Dioxide Anion Gap BUN Creatinine Estimated Creat Clear Estimated GFR Est GFR ( Amer) Glucose POC Glucose 93 124 H 124 H Calcium Preliminary micro results at discharge 06/20/18 13:29 Urine Culture - Preliminary Urine,Catheterized Gram Positive Cocci Gram Positive Cocci#2 Gram Positive Cocci#3 DS: Diagnosis - Discharge Diagnosis (1) Fracture of femoral neck base Status: Acute (2) Dementia Status: Chronic (3) Atrial fibrillation Status: Chronic (4) Diabetes type 2, controlled Status: Chronic Discharge Plan - Patient Discharge Instructions ACTIVITY: Bed rest DIET: continue same diet Patient Instructions: DI for Hip Fracture, DI for Atrial Fibrillation, DI for Surgical Site Infection - Follow up Plan Follow up with: Caridad Green APRN [Nurse Practitioner] - 06/27/18 Disposition: [facility] Home Medications: Home Medications Medication Instructions Recorded Confirmed Type Acetaminophen [Tylenol 500mg 500 mg PO BID 06/18/18 06/19/18 History tablet] Atorvastatin Calcium [Lipitor 40mg 40 mg PO HS 06/18/18 06/19/18 History Tablet] Donepezil HCl [Aricept 5mg 10 mg PO HS 06/18/18 06/18/18 History Tablet] Metoprolol Succinate [Toprol XL 50 mg PO DAILY 06/18/18 06/18/18 History 50mg Tablet] Nitrofurantoin Monohyd/M-Cryst 100 mg PO BID 06/18/18 06/19/18 History [Macrobid 100 mg Capsule] Rivaroxaban [Xarelto 15mg tablet] 15 mg PO HS 06/18/18 06/18/18 History Trospium Chloride 20 mg PO HS 06/18/18 06/19/18 History buPROPion HCl [Wellbutrin SR 150mg 150 mg PO BID 06/18/18 06/19/18 History Tablet] lamoTRIgine [Lamictal] 25 mg PO BID 06/18/18 06/18/18 History Escitalopram Oxalate [Lexapro] 10 mg PO DAILY 06/19/18 06/19/18 History Hydrocod/Acet 5/325 mg [[place] 1 tab PO Q6HP PRN #20 tab 06/23/18 Rx 5/325mg tablet] Nitrofurantoin Macrocrystal 100 mg PO DAILY 14 Days capsule 06/23/18 Rx [Macrodantin 100mg capsule] Prescriptions/Medication Reconciliation: New Hydrocod/Acet 5/325 mg [[place] 5/325mg tablet] 1 tab PO Q6HP PRN #20 tab PRN Reason: Severe Pain Nitrofurantoin Macrocrystal [Macrodantin 100mg capsule] 100 mg PO DAILY 14 Days capsule Continue buPROPion HCl [Wellbutrin SR 150mg Tablet] 150 mg PO BID Atorvastatin Calcium [Lipitor 40mg Tablet] 40 mg PO HS Metoprolol Succinate [Toprol XL 50mg Tablet] 50 mg PO DAILY Trospium Chloride 20 mg PO HS Nitrofurantoin Monohyd/M-Cryst [Macrobid 100 mg Capsule] 100 mg PO BID lamoTRIgine [Lamictal] 25 mg PO BID Donepezil HCl [Aricept 5mg Tablet] 10 mg PO HS Acetaminophen [Tylenol 500mg tablet] 500 mg PO BID Escitalopram Oxalate [Lexapro] 10 mg PO DAILY Discontinued Rivaroxaban [Xarelto 15mg tablet] 15 mg PO HS
--- NOTE | 2018-06-23 12:35 | Progress Note ---
Subjective Date: 06/23/18 Time: 11:30 Principal diagnosis: Right hip fracture, A. Fib Interval history: Patient is status post cephalo-medullary nailing right femur, post op day #2. Patient is lying down in bed. Patient is pleasantly confused and talkative. Given her dementia it is difficult to make any meaningful conversation with her. Nursing staff reports that she is her usual self and has not had any problems postop. She is not complaining of any pain or discomfort. No history of any nausea or vomiting. No history of any cough, chest pain or shortness of breath. She is eating and drinking well. She is being [facility]. PN: Obj Ex Vital signs: Temp Pulse Resp BP Pulse Ox 97.9 F 81 18 150/63 H 97 06/23/18 08:00 06/23/18 08:00 06/23/18 08:00 06/23/18 08:00 06/23/18 08:00 Narrative: Laboratory Results - last 24 hr 06/22/18 14:23: POC Glucose 124 H 06/22/18 16:38: POC Glucose 124 H 06/22/18 21:21: POC Glucose 93 06/23/18 05:40: POC Glucose 81 06/23/18 06:20: WBC 5.7, RBC 2.92 L, Hgb 8.8 L, Hct 28.9 L, MCV 98.8, MCH 29.9, MCHC 30.3 L, RDW 15.0, Plt Count 216, MPV 9.1, Neut % (Auto) 72.5, Lymph % (Auto) 17.1, [place] % (Auto) 8.1, Eos % (Auto) 1.7, Baso % (Auto) 0.5, Neut # (Auto) 4.1, Lymph # (Auto) 1.0, [place] # (Auto) 0.5, Eos # (Auto) 0.1, Baso # (Auto) 0.0 06/23/18 06:20: Sodium 138, Potassium 3.6, Chloride 104, Carbon Dioxide 26, Anion Gap 11.6, BUN 16, Creatinine 0.85, Estimated Creat Clear 43, Estimated GFR 64, Est GFR ( Amer) 77, Glucose 82, Calcium 8.2 L 06/23/18 12:02: POC Glucose 80 Exam General appearance: alert, awake, no acute distress Cardiovascular: Irregular rate, normal peripheral pulses Respiratory: No respiratory distress noted, speaks in full sentences ABD: soft and non tender Neuro: alert, awake, dementia at baseline On examination of the lower extremities the limb lengths are equal. On examination of the right hip and thigh, the dressings are clean, dry and intact. We have changed the postoperative dressings and the incisions look clean and healthy. Small amount of of serous discharge noted on the dressings. No erythema, induration or bleeding is seen. Distal pulses are 1+. She is actively wiggling her toes when asked to do so. - Urinary Catheter Management Montano Cath placed during this visit: yes Urethral indwelling: Yes Reason for continuing: Surgical procedure Insertion date: 06/20/18 Insertion time: 13:25 Progress Note: A&P (1) Fracture of femoral neck base Status: Acute Current Visit: Yes (2) Dementia Status: Chronic Current Visit: Yes (3) Atrial fibrillation Status: Chronic Current Visit: Yes (4) Diabetes type 2, controlled Status: Chronic Current Visit: Yes Assessment and Plan for All Diagnoses:: I have reviewed the clinical findings and progress. We have changed the postoperative dressings and the incisions look clean and healthy. Little bit of serous discharge noted on the dressings. No erythema, induration or bleeding is seen. Overall she seems to be doing well without any postop problems. Continue physical therapy/mobilization weightbearing as tolerated on the right side with the walker. Continue DVT prophylaxis. [facility] is [facility]. Recommend DVT prophylaxis for 5 weeks postop- the appropriate agents include Lovenox, Aspirin 325 mg, Xarelto (Rivaroxaban), Eliquis (apixaban) and Coumadin. Follow-up in my office in 2 weeks time with check x-ray. Please feel free to call our office at [phone] for any orthopaedic questions. Medical management as per Dr. Rodriguez.
== END 2018-06-23 13:45 | DRG 482 ==
LOC: ER 16:57 → 2ND 18:58
PROVIDERS: ADMIT Emergency Medicine; ATTEND Internal Medicine Adolescent Medicine
CPT/HCPCS: 36415; 71010; 71045; 73502; 73552; 74176; 76000; 80048; 80053; 81001; 82962; 85025; 85610; 85730; 86850; 87077; 87086; 87088; 87186; 93005; 93306; 94761; 96374; 96375; 97162; 97530; 99284; C1713; C1769; J2405